=== PATIENT | male | born 1950 | race Caucasian/White ===

== ENCOUNTER 2019-11-24 09:50 | Outpatient (CLI) | payer MEDICARE, SELFPAY ==
--- NOTE | ~2019-11-24 | CT_ITS ---
EXAMINATION: CT lung screening DATE: 11/24/2019 10:22 INDICATION: Personal history of tobacco dependence. TECHNIQUE: Computed tomography (CT) of the chest was performed without intravenous contrast. The dose -length product was 190.87 mGy-cm. Automated exposure control and iterative reconstruction technique were employed. COMPARISON: CT dated 10/20/2018 FINDINGS: Heart size is normal. No significant pleural or pericardial effusion. There is atherosclero sis of the aorta and coronary arteries. There are calcified granulomas of the spleen. No significant pleural or pericardial effusion. There is a 5.9 cm right renal cyst. Mild emphysema. There is depende nt atelectasis. There are coronary arterial stents. Mild thoracic spondylosis. There are small inters titial densities in the right upper lobe which appear chronic. There is a 2 mm left upper lobe nodule , coronal image 44. Calcified right upper lobe nodule consistent with chronic granulomatous disease. IMPRESSION: 1. Lung-RADS category 2: Benign appearance or behavior. Continue annual screening with noncontrast lo w-dose chest CT in 12 months. Reviewed, dictated and finalized at location A. IMPRESSION: 1. Lung-RADS category 2: Benign appearance or behavior. Continue annual screeni ng with noncontrast low-dose chest CT in 12 months.
== END 2019-11-24 09:51 | disposition home or self-care (01) ==
PROVIDERS: PCP Family Medicine; Visit Provider Internal Medicine Critical Care Medicine
DX: Z12.2 Encounter for screening for malignant neoplasm of respiratory organs (principal); Z87.891 Personal history of nicotine dependence
CPT/HCPCS: G0297

== ENCOUNTER 2020-11-08 10:21 | Outpatient (CLI) | payer MEDICARE, SELFPAY ==
--- NOTE | ~2020-11-08 | CT_ITS ---
EXAMINATION: CT lung screening DATE: 11/08/2020 10:41 INDICATION: Personal history of nicotine dependence, prior smoker with 40 pack year history TECHNIQUE: Computed tomography (CT) of the chest was performed without intravenous contrast. The dose -length product (DLP) was 202.17 mGy-cm. Automated exposure control and iterative reconstruction tech thinkingphones were employed. COMPARISON: 11/24/2019 FINDINGS: There is mild emphysema. No suspicious pulmonary nodules are identified. The lungs are free of focal airspace opacities. There is mild dependent atelectasis. No pleural effusion or thorax iden tified. No pathologically enlarged thoracic lymph nodes are identified. The heart size is normal. The re is calcified coronary artery atherosclerosis. Subendocardial fat deposition in the heart is consis tent with prior myocardial infarction. There is moderate thoracic spondylosis. There is a partially i franck 5.7 cm cyst of the right kidney. Punctate calcifications in an otherwise normal spleen likely r epresent healed granulomatous disease. IMPRESSION: 1. Lung-RADS category 1: Negative. Continue annual screening with noncontrast low-dose chest CT in 12 months. Reviewed, dictated and finalized at location B. IMPRESSION: 1. Lung-RADS category 1: Negative. Continue annual screening with noncontrast l ow-dose chest CT in 12 months.
== END 2020-11-08 10:22 | disposition home or self-care (01) ==
PROVIDERS: PCP Family Medicine; Visit Provider Nurse Practitioner Family
DX: Z12.2 Encounter for screening for malignant neoplasm of respiratory organs (principal); Z87.891 Personal history of nicotine dependence
CPT/HCPCS: 71271

== ENCOUNTER 2021-11-12 09:13 | Outpatient (CLI) | payer MEDICARE, SELFPAY ==
--- NOTE | ~2021-11-12 | CT_ITS ---
EXAMINATION:CT lung screening DATE: 11/12/2021 09:36 INDICATION: Personal history of nicotine dependence. Smoker who quit 12 years ago with 40 pack year h istory. TECHNIQUE: Computed tomography (CT) of the chest was performed without intravenous contrast. Automate d exposure control and iterative reconstruction technique were employed. The dose-length product (DLP ) was 257.44 mGy-cm. COMPARISON: Chest CT 11/08/2020 FINDINGS: There is mild emphysema. There is chronic mild peripheral scarring in right lower lobe. The re is peripheral septal thickening in the inferior lungs. Calcified right lung nodules and calcified right hilar lymph nodes are consistent with old granulomatous disease. No bronchiectasis or honeycomb ing. No pleural effusion. There is left atrial enlargement of the heart. There are coronary artery ca lcifications. No pericardial effusion. There is a small sliding hiatal hernia. Calcifications in the spleen are consistent with old granulomatous disease. There is diffuse hepatic steatosis. There is a 6.4 cm cyst in right kidney. There is mild chronic anterior wedging of multiple vertebral bodies. IMPRESSION: 1. Lung-RADS category 2: Benign appearance or behavior. Continue annual screening with noncontrast lo w-dose chest CT in 12 months. Reviewed, dictated and finalized at location B. IMPRESSION: 1. Lung-RADS category 2: Benign appearance or behavior. Continue annual screeni ng with noncontrast low-dose chest CT in 12 months.
== END 2021-11-12 09:14 | disposition home or self-care (01) ==
LOC: ANHIMG 09:18
PROVIDERS: PCP Family Medicine; Visit Provider Physician Assistant
DX: Z12.2 Encounter for screening for malignant neoplasm of respiratory organs (principal); Z87.891 Personal history of nicotine dependence
CPT/HCPCS: 71271

== ENCOUNTER 2022-11-13 12:59 | Outpatient (CLI) | payer MEDICARE, SELFPAY ==
--- NOTE | ~2022-11-13 | CT_ITS ---
CT Scan of the Chest without Contrast: Clinical Indication: Lung cancer screening, personal Technique: Contiguous sections were acquired throughout the chest without intravenous contrast. Dose reduction technique was used on this scan by utilizing automated exposure control and iterative recon struction technique. The dose-length product (DLP) was 279.99 mGy-cm. Smoking history COMPARISON: 11/12/2021, 11/08/2020 Findings: There is no evidence of any significant mediastinal, hilar or axillary lymphadenopathy. Coronary corky ry calcifications are present. There is no evidence of pleural or pericardial effusion. No significant pulmonary nodule evident. Minimal subpleural reticulation noted. Images through the upper abdomen reveal no abnormalities. Impression: Lung RADS 2: Benign appearance. 12 month follow-up screening CT advised. Reviewed, dictated and finalized at [facility]. Impression: Lung RADS 2: Benign appearance. 12 month follow-up screening CT advised.
== END 2022-11-13 13:00 | disposition home or self-care (01) ==
PROVIDERS: PCP Family Medicine; Visit Provider Physician Assistant
DX: Z12.2 Encounter for screening for malignant neoplasm of respiratory organs (principal); Z87.891 Personal history of nicotine dependence
CPT/HCPCS: 71271

== ENCOUNTER 2023-05-20 01:19 | Day surgery (SDC) | payer MEDICARE, SELFPAY ==
[2023-05-16 09:24] VITALS: BMI 34.1
[2023-05-20 06:19] VITALS: BP 112/75; PULSE 70; RESP 18; TEMP 36.6; O2SAT 97
[2023-05-20] MEDS: LACTATED RINGERS 1,000 ML 150 ML IV CONT (06:30)
--- NOTE | 2023-05-20 07:18 | PM.HPGS ---
History of Present Illness History of Present Illness Consent: Risks, benefits, and alternatives have been discussed and questions answered. Patient agrees to proceed with procedure. Chief complaint: neoplasm screening, Narrative: Hamzah Smiley is a 72 year old male Presents for screening colonoscopy. Patient's current weight appetite and bowel movements are normal. Patient denies abdominal pain. He has had no bleeding. Family history noncontributory. Previous colonoscopy 2012 was unremarkable. Patient is on Eliquis because of atherosclerotic heart disease. History of heart stents. This is held in anticipation of colonoscopy. Review of Systems Review of Systems: Review of systems noncontributory. [facility] Past Medical History Medical History (Updated 04/30/23 @ 13:05 by Domenico Rankin MD) Acute bronchitis At low risk for fall Atherosclerosis of coronary artery of [place] heart without angina pectoris 2 stents placed around 2012. Nuclear stress test with no ischemia and ejection fraction 66% on 04/29/2023. Bilateral cataracts BPH without obstruction/lower urinary tract symptoms Colon cancer screening colonoscopy -2012 with recheck in 10 years Contracture of joint of finger of right hand COVID-19 02/23/22 positive home test Encounter for prostate cancer screening PSA 1.37 on 02/07/2023. Encounter for screening for malignant neoplasm of lung in former smoker who quit in past 15 years with 30 pack year history or greater CT lung negative on 11/08/2020. CT 11/13/2022 Was negative with recheck in 1 year. Hyperkalemia (07/11/22) potassium slightly elevated at 5.4 on 07/11/2022. Potassium normal at 4.3 on 07/26/2022. repeat labs 07/26/2022 with potassium normal at 4.3. Male erectile dysfunction, unspecified Obesity (BMI 30.0-34.9) Personal history of colonic polyps Family History Family History Mother Patient's mother is , Onset Age: 85 Acute myocardial infarction Sibling Patient's brother is , Onset Age: 61 Social History Social History (Updated 02/11/23 @ 10:45 by Darlin Abernathy MA) Social History: Quit 2010, 40 pack years Smoking packs per day: 1.5 Smoking cigarettes per day: 30.0 Years smoked: 40 Smoking pack-years: 60.00 Smoking status: Former smoker Tobacco type: cigarettes Second hand tobacco smoke exposure: Yes Smoking end date: 07/28/09 Alcohol intake: current Drinks per week: 8 Alcohol use details: BEERS Substance use: never Substance use type: does not use Lack of Transportation: No Lack of Food: Never True Current Housing: I Have Housing Concerned About Future Housing: No Difficulty Paying Gas/Electric Bills: No Difficulty Paying for Meds: No Currently Unemployed: No Education: High School Diploma/GED Difficulty w/ Childcare or Family Care: No Living arrangements: with family Spiritual care concerns: No Meds Home Medications and Allergies Home Medications Medication Instructions Recorded Confirmed Type apixaban 5 mg tablet (Eliquis) 5 mg PO BID 06/15/19 05/16/23 History aspirin 81 mg tablet,delayed 81 mg PO DAILY 06/15/19 05/16/23 History release (Adult Low Dose Aspirin) lisinopril 5 mg tablet 5 mg PO DAILY 06/15/19 05/16/23 History pantoprazole 40 mg tablet,delayed 40 mg PO QAM 06/15/19 05/16/23 History release spironolactone 25 mg tablet 25 mg PO DAILY 06/15/19 05/16/23 History carvedilol 6.25 mg tablet 6.25 mg PO Q12H 02/14/21 05/16/23 History icosapent ethyl 1 gram capsule 2 g PO BID 02/14/21 05/16/23 History (Vascepa) rosuvastatin 40 mg tablet 40 mg PO DAILY 05/16/23 05/16/23 History Allergies Allergy/AdvReac Type Severity Reaction Status Date / Time No Known Allergies Allergy Unknown Verified 05/20/23 06:16 Vital Signs Vital Signs - 24 hr 05/20/23 06:19 Temperature 97.8 F Pulse Rate 70 Respiratory R
--- NOTE | 2023-05-20 07:20 | WPDANESEPPF ---
Anes - Initial Pre Proc Eval Procedure: Operation Date: 05/20/23 07:30 Proposed Procedures p Screening Colonoscopy - Jason Francisco MD Date/Time: 05/20/23 07:20 Surgeon: Jason Francisco MD Pre Op Diagnosis: neoplasm screening, Patient Data Age: 72 Gender: M Height: 1.78 m Weight: 104.5 kg Last Vital Signs Temp 97.8 F 05/20/23 06:19 Pulse 70 05/20/23 06:19 Resp 18 05/20/23 06:19 BP 112/75 05/20/23 06:19 Pulse Ox 97 05/20/23 06:19 O2 Del Method Room Air 05/20/23 06:19 Allergies Allergy/AdvReac Type Severity Reaction Status Date / Time No Known Allergies Allergy Unknown Verified 05/20/23 06:16 Home Medications Medication Instructions Recorded Confirmed Type apixaban 5 mg tablet (Eliquis) 5 mg PO BID 06/15/19 05/16/23 History aspirin 81 mg tablet,delayed 81 mg PO DAILY 06/15/19 05/16/23 History release (Adult Low Dose Aspirin) lisinopril 5 mg tablet 5 mg PO DAILY 06/15/19 05/16/23 History pantoprazole 40 mg tablet,delayed 40 mg PO QAM 06/15/19 05/16/23 History release spironolactone 25 mg tablet 25 mg PO DAILY 06/15/19 05/16/23 History carvedilol 6.25 mg tablet 6.25 mg PO Q12H 02/14/21 05/16/23 History icosapent ethyl 1 gram capsule 2 g PO BID 02/14/21 05/16/23 History (Vascepa) rosuvastatin 40 mg tablet 40 mg PO DAILY 05/16/23 05/16/23 History Patient hx anesthesia problems: none Family hx anesthesia problems: none Results Review: All pre-operative results and documents have been reviewed as part of the pre-operative evaluation. [facility] Past Medical History Medical History (Updated 04/30/23 @ 13:05 by Domenico Rankin MD) Acute bronchitis At low risk for fall Atherosclerosis of coronary artery of [place] heart without angina pectoris 2 stents placed around 2012. Nuclear stress test with no ischemia and ejection fraction 66% on 04/29/2023. Bilateral cataracts BPH without obstruction/lower urinary tract symptoms Colon cancer screening colonoscopy -2013 with recheck in 10 years Contracture of joint of finger of right hand COVID-19 02/23/22 positive home test Encounter for prostate cancer screening PSA 1.37 on 02/07/2023. Encounter for screening for malignant neoplasm of lung in former smoker who quit in past 15 years with 30 pack year history or greater CT lung negative on 11/08/2020. CT 11/13/2022 Was negative with recheck in 1 year. Hyperkalemia (07/11/22) potassium slightly elevated at 5.4 on 07/11/2022. Potassium normal at 4.3 on 07/26/2022. repeat labs 07/26/2022 with potassium normal at 4.3. Male erectile dysfunction, unspecified Obesity (BMI 30.0-34.9) Personal history of colonic polyps Family History Family History Mother Patient's mother is , Onset Age: 85 Acute myocardial infarction Sibling Patient's brother is , Onset Age: 61 Social History Social History (Updated 02/11/23 @ 10:45 by Darlin Abernathy MA) Social History: Quit 2010, 40 pack years Smoking packs per day: 1.5 Smoking cigarettes per day: 30.0 Years smoked: 40 Smoking pack-years: 60.00 Smoking status: Former smoker Tobacco type: cigarettes Second hand tobacco smoke exposure: Yes Smoking end date: 07/28/09 Alcohol intake: current Drinks per week: 8 Alcohol use details: BEERS Substance use: never Substance use type: does not use Lack of Transportation: No Lack of Food: Never True Current Housing: I Have Housing Concerned About Future Housing: No Difficulty Paying Gas/Electric Bills: No Difficulty Paying for Meds: No Currently Unemployed: No Education: High School Diploma/GED Difficulty w/ Childcare or Family Care: No Living arrangements: with family Spiritual care concerns: No Anes - Eval Final PreProcedure Day of Procedure 05/20/23 07:20 Patient weight: obese Heart: regular rate and rhythm Lungs: clear to auscultation
[2023-05-20 07:44] VITALS: BP 97/73; PULSE 72; RESP 23; O2SAT 98
[2023-05-20 07:54] VITALS: BP 116/73; PULSE 81; RESP 16; O2SAT 95
[2023-05-20 08:04] VITALS: BP 120/86; PULSE 77; RESP 20; O2SAT 95
== END 2023-05-20 08:09 | disposition home or self-care (01) ==
PROVIDERS: PCP Family Medicine; Visit Provider Internal Medicine Gastroenterology
PROC: 0DJD8ZZ Inspection of Lower Intestinal Tract, Via Natural or Artificial Opening Endoscopic (ICD-10-PCS; CPT 45378; principal; 2023-05-20 07:30)
DX: Z12.11 Encounter for screening for malignant neoplasm of colon (principal); D12.2 Benign neoplasm of ascending colon; K64.8 Other hemorrhoids; K57.30 Diverticulosis of large intestine without perforation or abscess without bleeding; I25.10 Atherosclerotic heart disease of native coronary artery without angina pectoris; N40.0 Benign prostatic hyperplasia without lower urinary tract symptoms; E66.9 Obesity, unspecified; Z68.33 Body mass index [BMI] 33.0-33.9, adult; Z79.01 Long term (current) use of anticoagulants; Z79.82 Long term (current) use of aspirin; Z87.891 Personal history of nicotine dependence; Z95.5 Presence of coronary angioplasty implant and graft
CPT/HCPCS: 45385; 88305; J2704; J7120

== ENCOUNTER 2023-10-30 13:48 | Outpatient (CLI) | payer MEDICARE, SELFPAY ==
--- NOTE | ~2023-10-30 | XR_ITS ---
XR chest 2V DATE: 10/30/2023 14:00 INDICATION: Persistent cough for 2 weeks TECHNIQUE: PA and lateral views COMPARISON: 11/14/2023 PA and lateral views FINDINGS: Borderline heart size. There is aortic calcification. No hilar or mediastinal enlargement . No pulmonary infiltrate or consolidation, pulmonary vascular congestion or pleural effusion or pne umothorax. Moderate anterior wedging of T12, likely chronic. IMPRESSION: Borderline heart size. No active pulmonary disease Reviewed, dictated and finalized at location B.
== END 2023-10-30 13:49 | disposition home or self-care (01) ==
PROVIDERS: PCP Family Medicine; Visit Provider Family Medicine
DX: J20.9 Acute bronchitis, unspecified (principal)
CPT/HCPCS: 71046

== ENCOUNTER 2023-11-17 09:38 | Outpatient (CLI) | payer MEDICARE, SELFPAY ==
--- NOTE | ~2023-11-17 | CT_ITS ---
EXAMINATION: CT lung screening DATE: 11/17/2023 09:59 INDICATION: Personal history of nicotine TECHNIQUE: Computed tomography (CT) of the chest was performed without intravenous contrast. The dose -length product was 212.73 mGy-cm. Automated exposure control and iterative reconstruction technique were employed. COMPARISON: CT report dated 11/13/2022 FINDINGS: Heart size normal. No significant pleural or pericardial effusion. Heart size normal. There is atherosclerosis. There are calcified granulomas of the spleen. Fatty infiltration of the liver. T here is atherosclerosis of the aorta and coronary arteries. No thoracic lymphadenopathy. No endobronc hial lesions. There is dependent atelectasis. Mild emphysema. There is dependent atelectasis. There a re a few scattered calcified granulomas. There are a few small 1-2 mm upper lobe nodules not clearly calcified. Moderate thoracic spondylosis. There is a wedge compression deformity of T12, likely chron ic. IMPRESSION: 1. Lung-RADS category 2: Benign appearance or behavior. Continue annual screening with noncontrast lo w-dose chest CT in 12 months. Reviewed, dictated and finalized at location B. IMPRESSION: 1. Lung-RADS category 2: Benign appearance or behavior. Continue annual screeni ng with noncontrast low-dose chest CT in 12 months.
== END 2023-11-17 09:39 | disposition home or self-care (01) ==
LOC: ANHIMG 09:40
PROVIDERS: PCP Family Medicine; Visit Provider Physician Assistant
DX: Z12.2 Encounter for screening for malignant neoplasm of respiratory organs (principal); Z87.891 Personal history of nicotine dependence
CPT/HCPCS: 71271

== ENCOUNTER 2023-11-18 01:10 | Emergency (ER) | payer MEDICARE, SELFPAY ==
[2023-11-18 01:11] VITALS: BP 135/83; PULSE 90; RESP 16; TEMP 36.4; O2SAT 96
[2023-11-18 01:32] LABS: Basophils Percent Auto 0.1 % (0.2-1.2); Eosinophils Percent Auto 0.1 % (0-4.4); Hematocrit 48.3 % (42.0-52.0); Hemoglobin 16.1 g/dL (14.0-18.0); Immature Granulocyte Absolute 0.02 K/mm3 (0.00-0.031); Immature Granulocyte Percent A 0.3 % (0-0.5); Lymphocytes Absolute Auto 1.68 K/mm3 (0.9-3.2); Lymphocytes Percent Auto 21.9 % (18.3-44.2); Mean Corpuscular HGB Conc 33.3 g/dl (32-36); Mean Corpuscular Hemoglobin 29.7 pg (26-34); Mean Platelet Volume 9.6 fl (7.4-10.4); Monocytes Absolute Auto 0.9 K/mm3 (0.1-0.6); Monocytes Percent Auto 12.2 % (2.6-8.5); Neutrophils Percent Auto 65.4 % (45.5-73.1); Platelet Count Result 202 k/mm3 (150-375); Red Blood Count 5.43 M/mm3 (4.6-6.20); Red Cell Distribution Width 15.4 % (11.5-14.5); White Blood Count 7.7 K/mm3 (4.5-10.0)
[2023-11-18 01:42] LABS: Alanine Aminotransferase 27 U/L (6-50); Albumin Level 4.3 g/dL (3.5-5.1); Alkaline Phosphatase 79 U/L (38-126); Anion Gap 5 mmol/L (4-12); Aspartate Amino Transferase 38 U/L (17-59); Bilirubin,Total 0.9 mg/dL (0.2-1.3); Blood Urea Nitrogen 14 mg/dL (9-20); Calcium 9.1 mg/dL (8.4-10.2); Carbon Dioxide 26 mmol/L (22-30); Chloride 104 mmol/L (98-107); Estimated CRCL calculation 86 ml/min; Estimated Glomerular Filt Rate > 60; Glucose 115 mg/dL (65-110); Lipase 73 U/L (23-300); Potassium 3.5 mmol/L (3.4-5.0); Sodium 135 mmol/L (137-145)
[2023-11-18 02:07] LABS: Influenza A QL RT-PCR Negative (Negative); Influenza B QL RT-PCR Negative (Negative); RSV RNA, RT-PCR Negative (Negative); SARS-CoV-2 RNA PCR Negative (Negative)
[2023-11-18 02:36] LABS: Appearance Urine Cloudy (Clear); Bilirubin Urine Negative (Negative); Blood Urine 1+ (Negative); Color Urine Yellow (Yellow); Glucose Urine UA Negative (Negative); Ketones Urine Negative (Negative); Leukocyte Esterase Ur 3+ LEU/UL (Negative); Nitrate Urine Negative (Negative); Non Pathogenic Casts 0-2; Protein Urine Negative (Negative); RBC Urine 0-2 /hpf (0-2); Specific Grav Ur 1.011 (1.001-1.035); Squamous Epithelial Cell Urine None Seen /hpf (Few); WBC Urine >100 /hpf (0-3); pH Urine 5.5 (5.0-9.0)
[2023-11-18 02:47] LABS: Bacteria Urine 2+ /hpf
[2023-11-18 02:48] LABS: Add Urine Microscopic? YES
[2023-11-18] MEDS: SODIUM CHLORIDE 0.9% IV 1,000 ML 999 ML IV CONT (03:17)
[2023-11-18 03:24] VITALS: BP 120/86; PULSE 76; RESP 15; O2SAT 97
--- NOTE | 2023-11-18 03:24 | ED.GENADULT ---
HPI - General Adult General Chief complaint: Nausea/Vomiting/Diarrhea Stated complaint: vomiting and diarrhea Time Seen by Provider: 11/18/23 02:47 History of Present Illness HPI narrative: Patient 72-year-old woman who presents emergency department with chief complaint of diarrhea vomiting and chills and episodes of sweating. Patient reports that he had symptoms over the weekend and reports that now he started to slough stool and is having no more vomiting. The patient has had an episode of chills and sweats patient states he has had no chest pain denies shortness of breath. Related Data Home Medications Medication Instructions Recorded Confirmed apixaban 5 mg tablet (Eliquis) 5 mg PO BID 06/15/19 08/19/23 aspirin 81 mg tablet,delayed 81 mg PO DAILY 06/15/19 08/19/23 release (Adult Low Dose Aspirin) lisinopril 5 mg tablet 5 mg PO DAILY 06/15/19 08/19/23 pantoprazole 40 mg tablet,delayed 40 mg PO QAM 06/15/19 08/19/23 release spironolactone 25 mg tablet 25 mg PO DAILY 06/15/19 08/19/23 carvedilol 6.25 mg tablet 6.25 mg PO Q12H 02/14/21 08/19/23 icosapent ethyl 1 gram capsule 2 g PO BID 02/14/21 08/19/23 (Vascepa) rosuvastatin 40 mg tablet 40 mg PO DAILY 05/16/23 08/19/23 Allergies Allergy/AdvReac Type Severity Reaction Status Date / Time No Known Allergies Allergy Unknown Verified 05/20/23 06:16 Review of Systems Review of Systems: A 10 system review of systems was completed on the patient and is negative except for what is stated in the HPI. Nursing and ancillary documentation was reviewed. [facility] Past Medical History Medical History Acute bronchitis (~09/2023) Chest x-ray with no active lung disease 10/30/2023. Acute non-recurrent maxillary sinusitis At low risk for fall Atherosclerosis of coronary artery of [place] heart without angina pectoris 2 stents placed around 2013 LAD, RCA. Nuclear stress test with no ischemia and ejection fraction 66% on 04/29/2023. Bilateral cataracts BMI 33.0-33.9,adult BPH without obstruction/lower urinary tract symptoms Colon cancer screening colonoscopy -2013 with recheck in 10 years Contracture of joint of finger of right hand COVID-19 02/23/22 positive home test. Tested positive 07/09/2023. Encounter for prostate cancer screening PSA 1.37 on 02/07/2023. Encounter for screening for malignant neoplasm of lung in former smoker who quit in past 15 years with 30 pack year history or greater CT lung negative on 11/08/2020. CT 11/13/2022 Was negative with recheck in [address] lungs 11/17/2023 Was negative. Essential hypertension Hyperkalemia (07/11/22) potassium slightly elevated at 5.4 on 07/11/2022. Potassium normal at 4.3 on 07/26/2022. repeat labs 07/26/2022 with potassium normal at 4.3. Male erectile dysfunction, unspecified Obesity (BMI 30.0-34.9) Personal history of colonic polyps Normal colonoscopy 2012.Sessile polyp , tubular adenoma, ascending colon 05/20/2023 with recheck in 5 years. UTI (urinary tract infection) Family History Family History Mother Patient's mother is , Onset Age: 85 Acute myocardial infarction Sibling Patient's brother is , Onset Age: 61 Social History Social History Social History: Quit 2010, 40 pack years Smoking packs per day: 1.5 Smoking cigarettes per day: 30.0 Years smoked: 40 Smoking pack-years: 60.00 Smoking status: Former smoker Tobacco type: cigarettes Second hand tobacco smoke exposure: Yes Smoking end date: 07/28/09 Alcohol intake: current Drinks per week: 8 Alcohol use details: BEERS Substance use: never Substance use type: does not use Lack of Transportation: No Lack of Food: Never True Current Housing: I Have Housing Concerned About Future Housing: No Difficult
[2023-11-18 04:29] VITALS: BP 128/91; PULSE 68; RESP 16; O2SAT 97
== END 2023-11-18 04:36 | disposition home or self-care (01) ==
PROVIDERS: Emergency Provider Emergency Medicine; PCP Family Medicine
DX: N39.0 Urinary tract infection, site not specified (principal); K52.9 Noninfective gastroenteritis and colitis, unspecified; Z20.822 Contact with and (suspected) exposure to COVID-19; I25.10 Atherosclerotic heart disease of native coronary artery without angina pectoris; I10 Essential (primary) hypertension; E66.9 Obesity, unspecified; N40.0 Benign prostatic hyperplasia without lower urinary tract symptoms; Z68.32 Body mass index [BMI] 32.0-32.9, adult; Z95.5 Presence of coronary angioplasty implant and graft; Z86.16 Personal history of COVID-19; Z87.440 Personal history of urinary (tract) infections; Z86.010 Personal history of colon polyps; Z79.01 Long term (current) use of anticoagulants; Z79.82 Long term (current) use of aspirin; Z87.891 Personal history of nicotine dependence
CPT/HCPCS: 36415; 80053; 81001; 83690; 85025; 87077; 87086; 87088; 87181; 87637; 96361; 96365; 99284; J0696; J7030

== ENCOUNTER 2024-09-22 10:11 | Outpatient (CLI) | payer MEDICARE, SELFPAY ==
--- NOTE | 2024-09-22 10:30 | ECG_ITS ---
Test Date: 2024-09-22 10:43:10 Measurements Intervals [place] Rate: 69 P: 0 [place]: 0 QRS: 31 QRSD: 93 T: 41 QT: 384 QTc: 412 Interpretive Statements ATRIAL FIBRILLATION BASELINE ARTIFACT- I, III, AVR, AVL, AVF, V1-V6 ABNORMAL ECG No previous ECG available for comparison Electronically Signed On 09-22-2024 10:47:37 PIN GAME MACHINE INSPECTOR by Franklin Oseguera D.O.
--- OUTSIDE RECORDS SUMMARY | 2024-09-22 11:46 | XMS_ITS | Referral Summary ---
Author Organization [facility] [place] [address] [facility] [address] Address [address] [place] [address] Care Team Providers Care Header Boss Name Role Phone Domenico Rankin MD Primary Care Provider [phone] Encounters Date Type Department Care Team Description 09/08/2024 Telephone [facility] Medical Group Cardiology [address] [facility] [address] [place] [address] Terrell Brizuela MD 07/07/2024 9:15 AM BUCKLE GLUER Ancillary Procedure [facility] Medical [facility] Cardiology [address] [place] [address] Coronary artery disease involving [place] coronary artery of [place] heart with other form of angina pectoris (HCC) from Last 3 Months Allergies No known active allergies Medications aspirin 81 mg enteric coated tablet Take 1 tablet (81 mg total) by mouth daily 30 tablet 12 04/12/2019 Active icosapent ethyL (VASCEPA) 1 gram capsule TAKE 2 CAPSULES BY MOUTH TWICE DAILY 360 capsule 3 12/08/2022 Active icosapent ethyL (Vascepa) 1 gram capsule Take 2 capsules (2 g total) by mouth 2 (two) times a day 360 capsule 3 09/10/2023 Active carvediloL (COREG) 6.25 mg tablet TAKE 1 TABLET BY MOUTH TWICE DAILY WITH MEALS 180 tablet 3 06/08/2024 Active rosuvastatin (CRESTOR) 40 mg tablet TAKE 1 TABLET BY MOUTH AT NIGHT 90 tablet 3 06/08/[address] (PROTONIX) 40 mg EC tablet TAKE 1 TABLET BY MOUTH DAILY 90 tablet 3 07/12/2024 Active spironolactone (ALDACTONE) 25 mg tablet TAKE 1 TABLET BY MOUTH DAILY 90 tablet 3 07/12/2024 Active lisinopriL (PRINIVIL,ZESTR [place]) 5 mg tablet TAKE 1 TABLET BY MOUTH DAILY 90 tablet 3 07/12/2024 Active Eliquis 5 mg tablet TAKE 1 TABLET BY MOUTH TWICE DAILY 180 tablet 3 07/12/2024 Active Active Problems Problem Noted Date Diagnosed Date Atrial fibrillation (CMS/HCC) 05/17/2015 Overview (11/01/2016): Atrial fibrillation status post cardioversion Social History Tobacco Use Types Packs/Day Years Used Date Smoking Tobacco: Former Cigarettes Q uit: 07/28/2009 Smokeless Tobacco: Never Tobacco Cessation:Counseling Given: Not Answered Alcohol Use Standard Drinks/Week Comments Yes 0 (1 standard drink = 0.6 oz pur e alcohol) Sex and Gender Information Value Date Recorded Sex Assigned at Not on file Legal Sex Male 10:57 AM BUCKLE GLUER Gender Identity Not on file Sexual Orientation Not on file Last Filed Vital Signs Vital Sign Reading Time Taken Comments Blood Pressure 109/73 07/07/2024 9:51 AM BUCKLE GLUER Pulse 83 05/07/2024 9:47 AM CDT Temperature 34.6 C (94.2 F) 10/23/2020 1:14 PM CDT Respiratory Rate 15 06/03/2022 11:07 AM BUCKLE GLUER Oxygen Saturation 94% 05/07/2024 9:47 AM CDT Inhaled Oxygen Concentration - - Weight 102.1 kg (225 lb) 05/07/2024 9:47 AM CDT Height 177.8 cm (5' 10 ) 05/07/2024 9:47 AM CDT Body Mass Index 32.28 05/07/2024 9:47 AM CDT Plan of Treatment Not on file Procedures Procedure Name Priority Date/Time Associated Diagnosis Comments TRANSTHORACIC ECHO (TTE) COMPLETE W DOPPLER/CF WO CONTRAST Routine 07/07/2024 9:51 AM BUCKLE GLUER Coronary artery disease involving [place] coronary artery of [place] heart with other form of angina pectoris (HCC) from Last 3 Months Results * TRANSTHORACIC ECHO (TTE) COMPLETE W DOPPLER/CF WO CONTRAST (07/07/2024 9:51 AM BUCKLE GLUER) Anatomical Region Laterality Modality Ultrasound 07/07/2024 9:52 AM BUCKLE GLUER Narrative 07/07/2024 11:58 AM BUCKLE GLUER [facility] Medical Group Cardiology [address], [place] [address] [address], [place] [address] P:[phone] P:[phone] Echocardiographic Report Patient Name: HAMZAH SMILEY R : 1950 Study Date: 07/07/2024 9:52:35 AM Gender: M Tech: CLARISSE [facility] Provider: TERRELL BRIZUELA Height(Cm): 178 BSA: 2.25 Weight(Kg): 102.1 Heart Rate: 76 BP: 109 / 73 Quality: Good Order Provider: TERRELL BRIZUELA PROCEDURES: Echocardiographic Report: Transthoracic echocardiogram with complete 2D, M-Mode, and color Doppler examination. With Strain Analysis. INDICATIONS: I25.118 Atherosclerotic heart disease of [place] coronary artery with other forms of angina pectoris. MEASUREMENTS: 2D/MM Value Range Doppler Value Range Estimated EF 55-60 % BRITTANY Vmax 3.07 cm2 [ 2.00 - 4.00 ] LVIDd 2D 4.76 cm [ 4.20 - 5.80 ] AV Mean PG 2 mmHg LVIDs 2D 3.75 cm [ 2.50 - 4.00 ] AV Peak Milton 0.92 m/s [ 1.00 - 1.70 ] LVPWd 2D 1.26 cm [ 0.60 - 1.00 ] AV Peak PG 3 mmHg IVSd 2D 1.31 cm [ 0.60 - 1.00 ] AV VTI 15.56 cm LA Volume Index 38 cc/m2 [ 16 - 34 ] LVOT Diam 2.33 cm [ 1.70 - 2.10 ] LVOT Peak [place] 0.65 m/s [ 0.70 - 1.10 ] LVOT VTI 10.55 cm MV E Peak [place] 0.67 m/s [ 0.60 - 1.30 ] MV A Peak [place] 0.53 m/s [ 1.00 - 1.20 ] MV Decel Time 187 msec [ 104 - 258 ] TR Peak Milton 2.21 m/s [ 1.00 - 2.80 ] TR Peak PG 20 mmHg Lateral E` 0.10 m/s [ 0.10 - 0.15 ] E` 0.09 m/s E/E` 7 2D/MM Value Range Doppler Value Range - FINDINGS: Interpretation Site: Exam was interpreted at [facility]. Left Ventricle: Normal left ventricular size. Moderate concentric left ventricular hypertrophy. Normal global left ventricular systolic function. Ejection Fraction is visually estimated to be 55-60 %. Global Longitudinal Strain is -13 %. Right Ventricle: Normal right ventricular size. Normal right ventricular systolic function. Left Atrium: There is mild enlargement of left atrium. Right Atrium: There is mild enlargement of right atrium. Atrial Septum: Normal atrial septum. Mitral Valve: Normal appearance of the mitral valve. Trivial regurgitation of the mitral valve. Aortic Valve: No evidence of hemodynamically significant aortic stenosis by Doppler. Aortic cusps appear mildly sclerotic. Trileaflet aortic valve. Tricuspid Valve: Normal appearance of the tricuspid valve. Estimated peak RVSP is 28 mmHg. Mild tricuspid regurgitation. Pulmonic Valve: Normal appearance of the pulmonic valve. Mild pulmonic regurgitation. Pericardium: Normal pericardium with no significant pericardial effusion. There is an anterior echo free space consistent with epicardial fat pad. Aorta: Sinus of Valsalva is mildly dilated. Sinus of Valsalva 4.0 cm. IVC: Normal size and normal respiratory collapse consistent with normal right atrial pressure (<5 mmHg). CONCLUSIONS: Normal left ventricular size. Moderate concentric left ventricular hypertrophy. Normal global left ventricular systolic function. Ejection Fraction about 55-60 %. Global Longitudinal Strain is abnormal at -13 %. Normal RV size and systolic function. Mild biatrial enlargement. Normal appearance of the mitral valve. Trivial regurgitation of the mitral valve. No evidence of hemodynamically significant aortic stenosis by Doppler. Aortic cusps appear mildly sclerotic. Trileaflet aortic valve. Estimated RVSP 28 mmHg. Mild tricuspid and pulmonic regurgitation. Electronically Signed By: Terrell Brizuela MD, [facility] 07/07/2024 11:57:05 AM BUCKLE GLUER Procedure Note Terrell Brizuela MD - 07/07/2024 [facility] Medical Group Cardiology [address] [facility] [address], [place] [address] [address] [facility] [address], [place] [address] P:[phone] P:[phone] Echocardiographic Report Patient Name: HAMZAH SMILEY R : 1950 Study Date: 07/07/2024 9:52:35 AM Gender: M Tech: CLARISSE Location: [facility] Provider: TERRELL BRIZUELA Height(Cm): 178 BSA: 2.25 Weight(Kg): 102.1 Heart Rate: 76 BP: 109 / 73 Quality: Good Order Provider: TERRELL BRIZUELA PROCEDURES: Echocardiographic Report: Transthoracic echocardiogram with complete 2D, M-Mode, and color Dopplerexamination. With Strain Analysis. INDICATIONS: I25.118 Atherosclerotic heart disease of [place] coronary artery with otherforms of angina pectoris. MEASUREMENTS: 2D/MM Value Range Doppler ValueRange Estimated EF 55-60 % BRITTANY Vmax 3.07cm2 [ 2.00 - 4.00 ] LVIDd 2D 4.76 cm [ 4.20 - 5.80 ] AV Mean PG 2mmHg LVIDs 2D 3.75 cm [ 2.50 - 4.00 ] AV Peak Milton 0.92m/s [ 1.00 - 1.70 ] LVPWd 2D 1.26 cm [ 0.60 - 1.00 ] AV Peak PG 3mmHg IVSd 2D 1.31 cm [ 0.60 - 1.00 ] AV VTI 15.56cm LA Volume Index 38 cc/m2 [ 16 - 34 ] LVOT Diam 2.33 cm[ 1.70 - 2.10 ] LVOT Peak [place] 0.65 m/s [ 0.70 - 1.10 ] LVOT VTI 10.55 cm MV E Peak [place] 0.67 m/s [ 0.60 - 1.30 ] MV A Peak [place] 0.53 m/s [ 1.00 - 1.20 ] MV Decel Time 187 msec [ 104 - 258 ] TR Peak Milton 2.21 m/s [ 1.00 - 2.80 ] TR Peak PG 20 mmHg Lateral E` 0.10 m/s [ 0.10 - 0.15 ] E` 0.09 m/s E/E` 7 2D/MM Value Range Doppler ValueRange - FINDINGS: Interpretation Site: Exam was interpreted at [facility]. Left Ventricle: Normal left ventricular size. Moderate concentric left ventricularhypertrophy. Normal global left ventricular systolic function. Ejection Fraction is visuallyestimated to be 55-60 %. Global Longitudinal Strain is -13 %. Right Ventricle: Normal right ventricular size. Normal right ventricular systolicfunction. Left Atrium: There is mild enlargement of left atrium. Right Atrium: There is mild enlargement of right atrium. Atrial Septum: Normal atrial septum. Mitral Valve: Normal appearance of the mitral valve. Trivial regurgitation of the mitralvalve. Aortic Valve: No evidence of hemodynamically significant aortic stenosis by Doppler.Aortic cusps appear mildly sclerotic. Trileaflet aortic valve. Tricuspid Valve: Normal appearance of the tricuspid valve. Estimated peak RVSP is 28 mmHg.Mild tricuspid regurgitation. Pulmonic Valve: Normal appearance of the pulmonic valve. Mild pulmonic regurgitation. Pericardium: Normal pericardium with no significant pericardial effusion. There is ananterior echo free space consistent with epicardial fat pad. Aorta: Sinus of Valsalva is mildly dilated. Sinus of Valsalva 4.0 cm. IVC: Normal size and normal respiratory collapse consistent with normal rightatrial pressure (<5 mmHg). CONCLUSIONS: Normal left ventricular size. Moderate concentric left ventricularhypertrophy. Normal global left ventricular systolic function. Ejection Fraction about 55-60%. Global Longitudinal Strain is abnormal at -13 %. Normal RV size and systolic function. Mild biatrial enlargement. Normal appearance of the mitral valve. Trivial regurgitation of the mitralvalve. No evidence of hemodynamically significant aortic stenosis by Doppler.Aortic cusps appear mildly sclerotic. Trileaflet aortic valve. Estimated RVSP 28 mmHg. Mild tricuspid and pulmonic regurgitation. Electronically Signed By: Terrell Brizuela MD, [facility] 07/07/2024 11:57:05 AM BUCKLE GLUER us Terrell Brizuela MD CV ECHO PROCEDURES Final Result from Last 3 Months Insurance MEDICARE [facility] MEDICARE [facility] Care Teams Header Boss Relationship Specialty Start Date End Date Domenico Rankin MD [address] [address] PCP - General Family Medicine 04/12/19
--- OUTSIDE RECORDS SUMMARY | 2024-09-22 11:46 | XMS_ITS | Clinical Summary ---
Author Organization [facility] [place] [address] Address [address] [place] [address] Care Team Providers Care Tube Bender Name Role Phone Domenico Rankin MD Primary Care Provider [phone] [phone] Allergies No known active allergies Medications aspirin [...] Problem Noted Date Diagnosed Date Atrial fibrillation ([facility]/HCC) 05/17/2015 Overview (11/01/2016): Atrial fibrillation status post cardioversion Encounters Date Type Department Care Team Description 09/08/2024 Telephone [facility] Medical Group Cardiology [address] [facility] [address] [place] [address] Terrell Brizuela MD 07/07/2024 9:15 AM DRAWING TENDER Ancillary Procedure [facility] Medical [facility] Cardiology [address] [place] [address] Coronary artery disease involving [place] coronary artery of [place] heart with other form of angina pectoris (HCC) from Last 3 Months Surgical History Surgery Date Site/Laterality Comments OTHER SURGICAL HISTORY Arrhythmias Afib s/p ILDEFONSO/DCCV: Medical History Medical History Date Comments Congestive heart failure (CMS/HCC) (HCC) Congestive Heart Failure Chronic coronary artery disease Coronary Artery Disease Hx Other Medical Arrhythmias Smita b s/p ILDEFONSO/DCCV Hx Other Medical Dyslipidemia Family History Medical History Relation Name Comments No Known Problems Father No Known Problems Mother Relation Name Status Comments Father Mother Social History Tobacco Use Types Packs/Day Years Used Date Smoking Tobacco: Former Cigarettes Q uit: 07/28/2009 Smokeless Tobacco: Never Tobacco Cessation:Counseling Given: Not Answered Alcohol Use Standard Drinks/Week Comments Yes 0 (1 standard drink = 0.6 oz pur e alcohol) Sex and Gender Information Value Date Recorded Sex Assigned at Not on file Legal Sex Male 10:57 AM DRAWING TENDER Gender Identity Not on file Sexual Orientation Not on file Obstetrics History Last Filed Vital Signs Vital Sign Reading Time Taken Comments Blood Pressure 109/73 07/07/2024 9:51 AM DRAWING TENDER Pulse 83 05/07/2024 9:47 AM CDT Temperature 34.6 C (94.2 F) 10/23/2020 1:14 PM CDT Respiratory Rate 15 06/03/2022 11:07 AM DRAWING TENDER Oxygen Saturation 94% 05/07/2024 9:47 AM CDT Inhaled Oxygen Concentration - - Weight 102.1 kg (225 lb) 05/07/2024 9:47 AM CDT Height 177.8 cm (5' 10 ) 05/07/2024 9:47 AM CDT Body Mass Index 32.28 05/07/2024 9:47 AM CDT Plan of Treatment Health Maintenance Due Date Last Done Comments Colon Cancer Screening-Colonoscopy 1950 Depression Screening 1950 Hepatitis C Screening 1950 DTaP/Tdap/Td Vaccine (1 - Tdap) 1960 Hepatitis B Screening 12/15/1967 Zoster Vaccine (1 of 2) 12/15/1999 Abdominal Aortic Aneurysm (A AA) Screen 2014 Well Visit 65+ 2014 Pneumococcal vaccine 65+ (2 of 2 - PPSV23) 08/16/2021 08/16/2020 Fall Risk Assessment 04/08/2023 04/08/2022, 04/09/2021, 04/10/2020, Additional history exists Influenza Vaccine (#1) 2024 08/16/2020 Procedures Procedure Name Priority Date/Time Associated Diagnosis Comments TRANSTHORACIC ECHO (TTE) COMPLETE W DOPPLER/CF WO CONTRAST Routine 07/07/2024 9:51 AM DRAWING TENDER Coronary artery disease involving [place] coronary artery of [place] heart with other form of angina pectoris (HCC) from Last 3 Months Results * TRANSTHORACIC ECHO (TTE) COMPLETE W DOPPLER/CF WO CONTRAST (07/07/2024 9:51 AM DRAWING TENDER) Anatomical Region Laterality Modality Ultrasound 07/07/2024 9:52 AM DRAWING TENDER Narrative 07/07/2024 11:58 AM DRAWING TENDER [facility] Medical Group Cardiology [address] [facility] [address] [address] [address] [facility] [address], [place] [address] P:[phone] P:[phone] Echocardiographic Report Patient Name: HAMZAH SMILEY R : 1950 Study Date: 07/07/2024 9:52:35 AM Gender: M Tech: CLARISSE Location: [place] Ref Provider: TERRELL BRIZUELA Height(Cm): 178 BSA: 2.25 Weight(Kg): 102.1 Heart Rate: 76 BP: 109 / 73 Quality: Good Order Provider: TERRELL BRIZUELA PROCEDURES: Echocardiographic Report: Transthoracic echocardiogram with complete 2D, M-Mode, and color Doppler examination. With Strain Analysis. INDICATIONS: I25.118 Atherosclerotic heart disease of [place] coronary artery with other forms of angina [...] FINDINGS: Interpretation Site: Exam was interpreted at [facility]. Left Ventricle: Normal left ventricular size. [...] regurgitation. Electronically Signed By: Terrell Brizuela MD, [facility] 07/07/2024 11:57:05 AM DRAWING TENDER Procedure Note Terrell Brizuela MD - 07/07/2024 [facility] Medical Group Cardiology [address] [facility] [address] [id number] [address] [facility] [address], [address], [place] [address] P:[phone] P:[phone] Echocardiographic Report Patient Name: HAMZAH SMILEY R : 1950 Study Date: 07/07/2024 9:52:35 AM Gender: M Tech: CLARISSE Location: [place] Ref Provider: TERRELL BRIZUELA Height(Cm): 178 BSA: 2.25 Weight(Kg): 102.1 Heart Rate: 76 BP: 109 / 73 Quality: Good Order Provider: TERRELL BRIZUELA PROCEDURES: Echocardiographic Report: Transthoracic echocardiogram with complete 2D, M-Mode, and color Dopplerexamination. With Strain Analysis. INDICATIONS: I25.118 Atherosclerotic heart disease of [place] coronary artery with otherforms of angina pectoris. [...] FINDINGS: Interpretation Site: Exam was interpreted at [facility]. Left Ventricle: Normal left ventricular size. [...] regurgitation. Electronically Signed By: Terrell Brizuela MD, [facility] 07/07/2024 11:57:05 AM DRAWING TENDER Terrell Brizuela MD CV ECHO PROCEDURES Final Result from Last 3 Months Insurance MEDICARE [facility] MEDICARE [facility] Care Teams Tube Bender Relationship Specialty Start Date End Date Domenico Rankin MD [address] [address] PCP - General Family Medicine 04/12/19
--- OUTSIDE RECORDS SUMMARY | 2024-09-22 11:46 | XMS_ITS | Clinical Summary ---
Author Organization [facility] Care Team Providers Care Magazine Feeder Name Role Phone Unavailable Primary Care Provider Unavailabl e Social History Tobacco Use Types Packs/Day Years Used Date Smoking Tobacco: Never Assessed Sex and Gender Information Value Date Recorded Sex Assigned at Not on file Legal Sex Male 8:03 AM CDT Gender Identity Not on file Sexual Orientation Not on file Plan of Treatment Health Maintenance Due Date Last Done Comments Hepatitis C Virus (HCV) Screening 1950 TdaP Immunization 1950 Colonoscopy 1994 Colorectal Cancer Screening 1994 Cologuard 12/15/1999 Immunochemical Fecal Occult Blood 12/15/1999 Zoster Immunization (1 of 2) 12/15/1999 Pneumococcal Immunization (5 0+ years) (2 of 2 - PPSV23) 08/16/2021 08/16/2020 Influenza Immunization (#1) 2024 08/16/2020 SARS-COV-2 Immunization (3 - season) 2024 10/20/2020, 09/22/2020 Respiratory Syncytial Virus (RSV) Immunization (Adult) (1 - 1-dose 75+ series) 2024 Hepatitis B Immunization Aged Out No longer eligible based on patient's age to complete this topic Meningococcal Immunization (ACWY) Aged Out No longer eligible b ased on patient's age to complete this topic Rotavirus Immunization Aged Out No lo nger eligible based on patient's age to complete this topic
[2024-09-22 11:53] LABS: Anion Gap 12 mmol/L (4-12); Blood Urea Nitrogen 15 mg/dL (9-20); Carbon Dioxide 22 mmol/L (22-30); Chloride 104 mmol/L (98-107); Estimated Glomerular Filt Rate > 60; Glucose 94 mg/dL (65-110); Potassium 4.3 mmol/L (3.4-5.0); Sodium 138 mmol/L (137-145)
== END 2024-09-22 10:12 | disposition home or self-care (01) ==
LOC: ANHSURGERY 10:17
PROVIDERS: Anesthesiology; PCP Family Medicine; Visit Provider Surgery
DX: Z01.818 Encounter for other preprocedural examination (principal); I25.10 Atherosclerotic heart disease of native coronary artery without angina pectoris; I48.91 Unspecified atrial fibrillation; I10 Essential (primary) hypertension; E78.2 Mixed hyperlipidemia; K42.9 Umbilical hernia without obstruction or gangrene; Z79.899 Other long term (current) drug therapy
CPT/HCPCS: 36415; 80048; 86850; 86900; 86901; 93005

== ENCOUNTER → 2024-09-28 11:08 | Outpatient (CLI) | payer MEDICARE, SELFPAY | PROVIDERS: PCP Family Medicine; Visit Provider Family Medicine | DX: J20.9 Acute bronchitis, unspecified (principal); R91.8 Other nonspecific abnormal finding of lung field | CPT/HCPCS: 71046 ==

== ENCOUNTER → 2024-10-07 15:59 | Outpatient (CLI) | payer MEDICARE, SELFPAY ==
--- NOTE | ~2024-10-07 | XR_ITS ---
XR chest 2V Ordering provider: Domenico Rankin MD History: 73 years Male with . J20.9 - Acute bronchitis, unspecified . Comparison: September 28, 2024 FINDINGS: MEDIASTINUM: The cardiac silhouette is slightly enlarged. LUNGS: No infiltrates, effusions or pneumothorax. Slightly prominent markings in the lower lobes. OTHER: No free air under the diaphragm. Degenerative changes of the spine. Kyphosis. IMPRESSION: Prominent markings in the lower lobes which may indicate atelectatic changes. Reviewed, dictated and finalized at location A.
== END ==
PROVIDERS: PCP Family Medicine; Visit Provider Family Medicine
DX: J20.9 Acute bronchitis, unspecified (principal)
CPT/HCPCS: 71046

== ENCOUNTER 2024-11-02 00:32 | Day surgery (SDC) | payer MEDICARE, SELFPAY ==
[2024-09-16 12:14] VITALS: BMI 33.4
--- NOTE | 2024-09-16 12:28 | PC.NURSE ---
Addendum entered by Naya Rubio RN 10/18/24 08:49: Called pt, he has recovered from his URI and is aware of date and time change. He is to be here on 11/02/24 at 0600am for 0730 surgery. Pt reviewed meds and instructions, understands and questions answered. All of his Antibiotics are complete and he feels great/ready to proceed. No food after midnight and clear liquids till 0430am only. JRRN Take only the following medications with a SIP of water on the morning of surgery: ___Coreg/Carvedilol DO NOT STOP ANY OF YOUR OTHER PRESCRIPTION MEDICATIONS PRIOR TO SURGERY EXCEPT THE FOLLOWING Medications to discontinue per physician ___Eliquis [address] Topete Date to take last dose____10/29/24 Original Note: Report to the Outpatient Waiting Room, entrance under the green pavilion located off [facility], at time _07:30am on date __09/29/24 . Planned Procedure Time: _09:30am .? Time changes happen often and if your time is changed the preop area will call you the afternoon before. - You and your visitor will be asked to self-screen and do not enter if you have any COVID symptoms. Please call surgeon if you need to reschedule. - A mask is optional within the hospital at this time. Patients may have clear liquids (water, carbonated beverages, clear teas, apple juice) until 3 hours prior to surgery with a maximum of 20 ounces. - No food from midnight until time of surgery and no smoking, or chewing tobacco (or any form of nicotine). No chewing gum, candy or mints. (06:30am) - Take only the following medications with a SIP of water on the morning of surgery: ___Coreg/Carvedilol DO NOT STOP ANY OF YOUR OTHER PRESCRIPTION MEDICATIONS PRIOR TO SURGERY EXCEPT THE FOLLOWING Medications to discontinue per physician ___[place] [address] Topete Date to take last dose____09/25/24 Please no make-up, nail egyptian, hairspray, perfume, deodorant, or body powder the day of surgery.? No jewelry (including any body piercings) or valuables the day of surgery, leave them at home.? Please take a shower or bath the night before, or the morning of, surgery with an antibacterial soap.? Wear comfortable, loose fitting clothing.? - Jewelry must be removed prior to entering the operating room.? Rings and piercings that are not removed may be cut off. - The hospital will not accept responsibility for valuables.? - Please leave all valuables, including medications, at home the day of surgery. If you are going home after surgery, a licensed four horse hitch driver must drive you home.? - NO public transportation without another adult if you receive anesthesia. - We recommend that an adult stay with you for 24 hours following discharge. - We also recommend that you do not drive, make important decision, drink alcoholic beverages, or take any drugs that were not prescribed by your health care provider for at least 24 hours after your discharge time. Follow any additional instructions given to you from your surgeon. Telephone instructions given to ___Patient and asked if any additional questions and then verbalized understanding. Patient advised to call surgeon office or pre surgery nurse liaison [phone] if any additional questions.
--- OUTSIDE RECORDS SUMMARY | 2024-09-29 01:08 | XMS_ITS | Clinical Summary ---
Author Organization [facility] Care Team Providers Care Locomotive Oiler Name Role Phone Unavailable Primary Care Provider [...]
--- OUTSIDE RECORDS SUMMARY | 2024-09-29 01:08 | XMS_ITS | Referral Summary ---
Author Organization [facility] [place] [address] [facility] [address] Address [address] [place] [address] Care Team Providers Care Coal Inspector Name Role Phone Domenico Rankin MD Primary Care Provider [phone] Encounters Date Type Department Care Team Description 09/08/2024 Telephone [facility] Medical Group Cardiology [address] [facility] [address] [address] Terrell Brizuela MD 07/07/2024 9:15 AM CLASSROOM INSTRUCTOR Ancillary Procedure [facility] Medical [facility] Cardiology [address] [place] [address] Coronary artery disease involving eek coronary artery of eek heart with other form of angina pectoris [...] Problem Noted Date Diagnosed Date Atrial fibrillation 05/17/2015 Overview (11/01/2016): Atrial fibrillation status post [...] on file Legal Sex Male 10:57 AM CLASSROOM INSTRUCTOR Gender Identity Not on file Sexual Orientation Not on file Last Filed Vital Signs Vital Sign Reading Time Taken Comments Blood Pressure 109/73 07/07/2024 9:51 AM CLASSROOM INSTRUCTOR Pulse 83 05/07/2024 9:47 AM CDT Temperature 34.6 C (94.2 F) 10/23/2020 1:14 PM CDT Respiratory Rate 15 06/03/2022 11:07 AM CLASSROOM INSTRUCTOR Oxygen Saturation 94% 05/07/2024 9:47 AM CDT [...] DOPPLER/CF WO CONTRAST Routine 07/07/2024 9:51 AM CLASSROOM INSTRUCTOR Coronary artery disease involving eek coronary artery of eek heart with other form of angina pectoris (HCC) from Last 3 Months Results * TRANSTHORACIC ECHO (TTE) COMPLETE W DOPPLER/CF WO CONTRAST (07/07/2024 9:51 AM CLASSROOM INSTRUCTOR) Anatomical Region Laterality Modality Ultrasound 07/07/2024 9:52 AM CLASSROOM INSTRUCTOR Narrative 07/07/2024 11:58 AM CLASSROOM INSTRUCTOR [facility] Medical Group Cardiology [address], [place] [address] [address], [place] [address] P:[phone] P:[phone] Echocardiographic Report Patient Name: HAMZAH SMILEY R : 1950 Study Date: 07/07/2024 9:52:35 AM Gender: M Tech: CLARISSE Location: [facility] Provider: TERRELL BRIZUELA Height(Cm): 178 BSA: 2.25 Weight(Kg): 102.1 Heart Rate: 76 BP: 109 / 73 Quality: Good Order Provider: TERRELL BRIZUELA PROCEDURES: Echocardiographic Report: Transthoracic echocardiogram with complete 2D, M-Mode, and color Doppler examination. With Strain Analysis. INDICATIONS: I25.118 Atherosclerotic heart disease of eek coronary artery with other forms of angina [...] FINDINGS: Interpretation Site: Exam was interpreted at [facility]. Left Ventricle: Normal left ventricular size. Moderate [...] regurgitation. Electronically Signed By: Terrell Brizuela MD, [facility] 07/07/2024 11:57:05 AM CLASSROOM INSTRUCTOR Procedure Note Terrell Brizuela MD - 07/07/2024 [facility] Medical Group Cardiology [address] [facility] [address], [place] [address] [address] [facility] [id number], [place] [address] P:[phone] P:[phone] Echocardiographic Report Patient Name: HAMZAH SMILEY R : 1950 Study Date: 07/07/2024 9:52:35 AM Gender: M Tech: CLARISSE Location: [facility] Provider: TERRELL BRIZUELA Height(Cm): 178 BSA: 2.25 Weight(Kg): 102.1 Heart Rate: 76 BP: 109 / 73 Quality: Good Order Provider: TERRELL BRIZUELA PROCEDURES: Echocardiographic Report: Transthoracic echocardiogram with complete 2D, M-Mode, and color Dopplerexamination. With Strain Analysis. INDICATIONS: I25.118 Atherosclerotic heart disease of eek coronary artery with otherforms of angina pectoris. [...] FINDINGS: Interpretation Site: Exam was interpreted at [facility]. Left Ventricle: Normal left ventricular size. Moderate [...] regurgitation. Electronically Signed By: Terrell Brizuela MD, [facility] 07/07/2024 11:57:05 AM CLASSROOM INSTRUCTOR Terrell Brizuela MD CV ECHO PROCEDURES Final Result from Last 3 Months Insurance MEDICARE [facility] MEDICARE [employer] Care Teams Coal Inspector Relationship Specialty Start Date End Date Domenico Rankin MD [address] [address] PCP - General Family Medicine 04/12/19
--- OUTSIDE RECORDS SUMMARY | 2024-09-29 01:08 | XMS_ITS | Clinical Summary ---
Author Organization [facility] [address] Address [address] [place] [address] Care Team Providers Care Director Furniture Name Role Phone Domenico Rankin MD Primary Care Provider [phone] [phone] Allergies No known active allergies Medications aspirin [...] Type Department Care Team Description 09/08/2024 Telephone [facility] Cardiology [address] [facility] [address] [address] Terrell Brizuela MD 07/07/2024 9:15 AM COMMERCIAL ARTIST LETTERING Ancillary Procedure [facility] Medical [facility] Cardiology [address] [place] [address] Coronary artery disease involving [place]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 [...] on file Legal Sex Male 10:57 AM COMMERCIAL ARTIST LETTERING Gender Identity Not on file Sexual Orientation Not on file Obstetrics History Last Filed Vital Signs Vital Sign Reading Time Taken Comments Blood Pressure 109/73 07/07/2024 9:51 AM COMMERCIAL ARTIST LETTERING Pulse 83 05/07/2024 9:47 AM CDT Temperature 34.6 C (94.2 F) 10/23/2020 1:14 PM CDT Respiratory Rate 15 06/03/2022 11:07 AM COMMERCIAL ARTIST LETTERING Oxygen Saturation 94% 05/07/2024 9:47 AM CDT [...] DOPPLER/CF WO CONTRAST Routine 07/07/2024 9:51 AM COMMERCIAL ARTIST LETTERING Coronary artery disease involving [place]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 (HCC) from Last 3 Months Results * TRANSTHORACIC ECHO (TTE) COMPLETE W DOPPLER/CF WO CONTRAST (07/07/2024 9:51 AM COMMERCIAL ARTIST LETTERING) Anatomical Region Laterality Modality Ultrasound 07/07/2024 9:52 AM COMMERCIAL ARTIST LETTERING Narrative 07/07/2024 11:58 AM COMMERCIAL ARTIST LETTERING [facility] Cardiology [address] [facility] [address] [address] [address] [facility] [address], [place] [address] P:[phone] P:[phone] Echocardiographic Report Patient Name: HAMZAH SMILEY R : 1950 Study Date: 07/07/2024 9:52:35 AM Gender: M Tech: Location: [facility] Provider: TERRELL BRIZUELA Height(Cm): 178 BSA: 2.25 Weight(Kg): 102.1 Heart Rate: 76 BP: 109 / 73 Quality: Good Order Provider: TERRELL BRIZUELA PROCEDURES: Echocardiographic Report: Transthoracic echocardiogram with complete 2D, M-Mode, and color Doppler examination. With Strain Analysis. INDICATIONS: I25.118 Atherosclerotic heart disease of [place] coronary artery with other forms of angina [...] FINDINGS: Interpretation Site: Exam was interpreted at [facility]. Left Ventricle: Normal left ventricular [...] regurgitation. Electronically Signed By: Terrell Brizuela MD, [facility] 07/07/2024 11:57:05 AM COMMERCIAL ARTIST LETTERING Procedure Note Terrell Brizuela MD - 07/07/2024 [facility] Cardiology [address] [facility] [address] [id number] [address] [facility] [address] [address] P:[phone] P:[phone] Echocardiographic Report Patient Name: HAMZAH SMILEY R : 1950 Study Date: 07/07/2024 9:52:35 AM Gender: M Tech: CLARISSE Location: [place] Ref Provider: TERRELL BRIZUELA Height(Cm): 178 BSA: 2.25 Weight(Kg): 102.1 Heart Rate: 76 BP: 109 / 73 Quality: Good Order Provider: KOUL,TERRELL PROCEDURES: Echocardiographic Report: Transthoracic echocardiogram with complete 2D, M-Mode, and color Dopplerexamination. With Strain Analysis. INDICATIONS: I25.118 Atherosclerotic heart disease of [place] coronary artery with otherforms of angina pectoris. [...] FINDINGS: Interpretation Site: Exam was interpreted at [facility]. Left Ventricle: Normal left ventricular [...] regurgitation. Electronically Signed By: Terrell Brizuela MD, [facility] 07/07/2024 11:57:05 AM COMMERCIAL ARTIST LETTERING Terrell Brizuela MD CV ECHO PROCEDURES Final Result from Last 3 Months Insurance MEDICARE [facility] MEDICARE [facility] Care Teams Director Furniture Relationship Specialty Start Date End Date Domenico Rankin MD [address] [address] PCP - General Family Medicine 04/12/19
[2024-11-02] VITALS (11 sets, daily range): BP systolic 118–152; BP diastolic 72–95; PULSE 74–97; RESP 12–20; TEMP 36.3–36.6; O2SAT 93–98; BMI 31.7
--- OUTSIDE RECORDS SUMMARY | 2024-11-02 00:38 | XMS_ITS | Clinical Summary ---
Author Organization [facility] [address] Address [address] [place] [address] Care Team Providers Care Manufacturing Team Member Name Role Phone Domenico Rankin MD Primary Care Provider [phone] [phone] Allergies No known active allergies Medications aspirin [...] Type Department Care Team Description 09/08/2024 Telephone [facility] Cardiology [address] [facility] [address] [place] [address] Spike Peterson MD from Last 3 Months Surgical History Surgery Date Site/Laterality Comments OTHER SURGICAL HISTORY Arrhythmias Afib s/p ILDEFONSO/DCCV: Medical History Medical History Date Comments Congestive heart failure (HCC) C ongestive Heart Failure Chronic coronary artery disease Coronary [...] on file Legal Sex Male 10:57 AM 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 ANALYST Gender Identity Not on file Sexual Orientation Not on file Obstetrics History Last Filed Vital Signs Vital Sign Reading Time Taken Comments Blood Pressure 109/73 07/07/2024 9:51 AM METHODS ANALYST Pulse 83 05/07/2024 9:47 AM CDT Temperature 34.6 C (94.2 F) 10/23/2020 1:14 PM CDT Respiratory Rate 15 06/03/2022 11:07 AM METHODS ANALYST Oxygen Saturation 94% 05/07/2024 9:47 AM CDT [...] 04/09/2021, 04/10/2020, Additional history exists Influenza Vaccine (Season Ended) 2025 08/16/19 21 Insurance MEDICARE [facility] MEDICARE [employer] Care Teams Manufacturing Team Member Relationship Specialty Start Date End Date Domenico Rankin MD [address] [address] PCP - General Family Medicine 04/12/19
--- OUTSIDE RECORDS SUMMARY | 2024-11-02 00:38 | XMS_ITS | Referral Summary ---
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 MEDICARE [facility] Address: [id number] [place] [address] [facility] Care Teams Nick Setter Relationship Specialty Start Date End Date Domenico Rankin MD [address] [address] PCP - General Family Medicine 04/12/19
--- OUTSIDE RECORDS SUMMARY | 2024-11-02 00:38 | XMS_ITS | Clinical Summary ---
Author Organization [facility] Care Team Providers Care Consulting Sme Name Role Phone Unavailable Primary Care Provider [...]
--- NOTE | 2024-11-02 06:23 | SUR.PREOP ---
0623- Call to Dr. Topete to notify physician patient took last dose of Eliquis Friday AM. Per Dr. Topete OK to proceed with surgery.
[2024-11-02] MEDS: LACTATED RINGERS 1,000 ML 30 ML IV CONT ×2 (06:45→09:30)
[2024-11-02] MEDS: ACETAMINOPHEN 500 MG TABLET 1000 MG PO (06:55)
[2024-11-02] MEDS: KETOROLAC 15 MG/ML VIAL (*BKC) IV PUSH (06:56)
--- NOTE | 2024-11-02 07:13 | P.PNAN_ITS ---
Anes - Initial Pre Proc Eval Procedure: Operation Date: 11/02/24 07:30 Proposed Procedures p Laparoscopic Umbilical Hernia Repair with Mesh, Davinci Assisted - Amos Topete DO Date/Time: 11/02/24 07:13 Surgeon: Amos Topete DO Pre Op Diagnosis: 2cm umbilical hernia Patient Data Age: 73 Gender: M Height: 1.78 m Weight: 105.6 kg Allergies Allergy/AdvReac Type Severity Reaction Status Date / Time No Known Allergies Allergy Unknown Verified 10/18/24 08:49 Home Medications ?Medication ?Instructions ?Recorded ?Confirmed ?Type apixaban 5 mg tablet (Eliquis) 5 mg PO BID 06/15/19 10/18/24 History aspirin 81 mg tablet,delayed 81 mg PO DAILY 06/15/19 10/07/24 History release (Adult Low Dose Aspirin) lisinopril 5 mg tablet 5 mg PO DAILY 06/15/19 10/07/24 History pantoprazole 40 mg tablet,delayed 40 mg PO QAM 06/15/19 10/07/24 History release spironolactone 25 mg tablet 25 mg PO DAILY 06/15/19 10/18/24 History carvedilol 6.25 mg tablet 6.25 mg PO Q12H 02/14/21 10/07/24 History icosapent ethyl 1 gram capsule 2 g PO BID 02/14/21 10/07/24 History (Vascepa) rosuvastatin 40 mg tablet 40 mg PO DAILY 05/16/23 10/07/24 History Patient hx anesthesia problems: none Family hx anesthesia problems: none Results Review: All pre-operative results and documents have been reviewed as part of the pre- operative evaluation. [facility] Past Medical History Medical History BMI 32.0-32.9,adult Acute non-recurrent maxillary sinusitis UTI (urinary tract infection) Essential hypertension BMI 33.0-33.9,adult Personal history of colonic polyps Normal colonoscopy 2012.Sessile polyp , tubular adenoma, ascending colon 05/20/2023 with recheck in 5 years. At low risk for fall Encounter for prostate cancer screening PSA 1.37 on 02/07/2023. PSA 1.82 on 02/26/2024. Hyperkalemia (07/11/22) potassium slightly elevated at 5.4 on 07/11/2022. Potassium normal at 4.3 on 07/26/2022. repeat labs 07/26/2022 with potassium normal at 4.3. COVID-19 02/23/22 positive home test. Tested positive 07/09/2023. Obesity (BMI 30.0-34.9) BPH without obstruction/lower urinary tract symptoms Male erectile dysfunction, unspecified Encounter for screening for malignant neoplasm of lung in former smoker who quit in past 15 years with 30 pack year history or greater CT lung negative on 11/08/2020. CT 11/13/2022 Was negative with recheck in [address] lungs 11/17/2023 Was negative. Colon cancer screening colonoscopy -2012 with recheck in 10 years Contracture of joint of finger of right hand Acute bronchitis (~09/2023) Chest x-ray with no active lung disease 10/30/2023. Chest x-ray on 09/28/2024 with possible early pneumonia on the left with prominent markings bilaterally in the lower lobes. Atherosclerosis of coronary artery of [facility] [facility] [place] heart without angina pectoris 2 stents placed around 2013 LAD, RCA. Nuclear stress test with no ischemia and ejection fraction 66% on 04/29/2023. Bilateral cataracts treated surgically Surgical History Surgical History Hx of appendectomy Family History Family History Mother Patient's mother is , Onset Age: 85 Acute myocardial infarction Sibling Patient's brother is , Onset Age: 61 Social History Social History Social History: Quit 2010, 40 pack years Smoking packs per day: 1.5 Smoking cigarettes per day: 30.0 Years smoked: 40 Smoking pack-years: 60.00 Smoking status: Former smoker Tobacco type: cigarettes Second hand tobacco smoke exposure: Yes Smoking end date: 07/28/10 Alcohol intake: current Drinks per week: 6 Alcohol use details: BEERS Substance use: never Substance use type: does not use Lack of Transportation: No Lack of Food: Never True Current Housing: I Have Housing Concerned About Future Housing: No Difficulty Paying Gas/Electric Bills: No Difficulty Paying for Meds: No Currently Unemployed: No Education: High School Diploma/GED Difficulty w/ Childcare or Family Care: No Living arrangements: with family Additional living arrangements comments: Spiritual care concerns: No Anes - Eval Final PreProcedure Day of Procedure 11/02/24 07:13 Patient weight: obese Heart: regular rate and rhythm Lungs: decreased breath sounds Airway: Mallampati scale class III Neurological: alert and oriented Last oral intake: >/= 8 hours ASA classification: III Emergent: no Anesthetic plan: proceed Anesthesia type and monitoring: general ETT and standard monitoring Results Review: All pre-operative results and documents have been reviewed as part of the pre- operative evaluation. Informed Consent: The patient's anesthetic plan and its attendant risks and benefits were discussed with the patient/family/POA. Questions were solicited and answers provided to the satisfaction of the patient/family/POA.
--- NOTE | 2024-11-02 07:16 | WPDHPUPDATE1 ---
History and Physical Update Update Date/Time: 11/02/24 07:16 History and Physical has been reviewed, including an updated exam of the patient. There are NO changes in the patient's condition. Risks, benefits, and alternatives have been discussed and questions answered. Patient agrees to proceed with procedure.
--- NOTE | 2024-11-02 07:16 | PM.IMHP ---
H&P: HPI History of Present Illness Date/Time: 11/02/24 07:16 Chief Complaint: umbilical hernia Narrative: 73 yo man presents for umbilical hernia repair. He reports no changes since last seen in office. He last took his Eliquis Friday morning. Review of Systems Review of Systems: All systems reviewed & are unremarkable except as noted in HPI and below Constitutional: Constitutional: Denies chills, Denies fever(s), Denies headache(s) and Denies weight loss Eyes: Eyes: Denies change in vision ENT: Denies dizziness, Denies headache(s), Denies neck mass and Denies throat swelling Cardiovascular: Cardiovascular: Denies chest pain, Denies lightheadedness and Denies dyspnea Respiratory: Respiratory: Denies cough, Denies dyspnea and Denies wheezing Gastrointestinal: Gastrointestinal: Denies abdominal pain, Denies change in bowel habits, Denies nausea and Denies vomiting Genitourinary: Genitourinary: Denies hematuria and Denies dysuria Musculoskeletal: Musculoskeletal: Reports as per HPI Integumentary/Breasts: Skin/Breast: Reports as per HPI Neurologic: Denies dizziness and Denies headache(s) Allergic/Immunologic: Allergic/Immunologic: Denies throat swelling and Denies wheezing [facility] Past Medical History Medical History BMI 32.0-32.9,adult Acute non-recurrent maxillary sinusitis UTI (urinary tract infection) Essential hypertension BMI 33.0-33.9,adult Personal history of colonic polyps Normal colonoscopy 2012.Sessile polyp , tubular adenoma, ascending colon 05/20/2023 with recheck in 5 years. At low risk for fall Encounter for prostate cancer screening PSA 1.37 on 02/07/2023. PSA 1.82 on 02/26/2024. Hyperkalemia (07/11/22) potassium slightly elevated at 5.4 on 07/11/2022. Potassium normal at 4.3 on 07/26/2022. repeat labs 07/26/2022 with potassium normal at 4.3. COVID-19 02/23/22 positive home test. Tested positive 07/09/2023. Obesity (BMI 30.0-34.9) BPH without obstruction/lower urinary tract symptoms Male erectile dysfunction, unspecified Encounter for screening for malignant neoplasm of lung in former smoker who quit in past 15 years with 30 pack year history or greater CT lung negative on 11/08/2020. CT 11/13/2022 Was negative with recheck in [address] lungs 11/17/2023 Was negative. Colon cancer screening colonoscopy -2012 with recheck in 10 years Contracture of joint of finger of right hand Acute bronchitis (~09/2023) Chest x-ray with no active lung disease 10/30/2023. Chest x-ray on 09/28/2024 with possible early pneumonia on the left with prominent markings bilaterally in the lower lobes. Atherosclerosis of coronary artery of [place] heart without angina pectoris 2 stents placed around 2013 LAD, RCA. Nuclear stress test with no ischemia and ejection fraction 66% on 04/29/2023. Bilateral cataracts treated surgically Surgical History Surgical History Hx of appendectomy Family History Family History Mother Patient's mother is , Onset Age: 85 Acute myocardial infarction Sibling Patient's brother is , Onset Age: 61 Social History Social History Social History: Quit 2010, 40 pack years Smoking packs per day: 1.5 Smoking cigarettes per day: 30.0 Years smoked: 40 Smoking pack-years: 60.00 Smoking status: Former smoker Tobacco type: cigarettes Second hand tobacco smoke exposure: Yes Smoking end date: 07/28/10 Alcohol intake: current Drinks per week: 6 Alcohol use details: BEERS Substance use: never Substance use type: does not use Lack of Transportation: No Lack of Food: Never True Current Housing: I Have Housing Concerned About Future Housing: No Difficulty Paying Gas/Electric Bills: No Difficulty Paying for Meds: No Currently Unemployed: No Education: High School Diploma/GED Difficulty w/ Childcare or Family Care: No Living arrangements: with family Additional living arrangements comments: Spiritual care concerns: No Meds Home Medications and Allergies Home Medications ?Medication ?Instructions ?Recorded ?Confirmed ?Type apixaban 5 mg tablet (Eliquis) 5 mg PO BID 06/15/19 10/18/24 History aspirin 81 mg tablet,delayed 81 mg PO DAILY 06/15/19 10/07/24 History release (Adult Low Dose Aspirin) lisinopril 5 mg tablet 5 mg PO DAILY 06/15/19 10/07/24 History pantoprazole 40 mg tablet,delayed 40 mg PO QAM 06/15/19 10/07/24 History release spironolactone 25 mg tablet 25 mg PO DAILY 06/15/19 10/18/24 History carvedilol 6.25 mg tablet 6.25 mg PO Q12H 02/14/21 10/07/24 History icosapent ethyl 1 gram capsule 2 g PO BID 02/14/21 10/07/24 History (Vascepa) rosuvastatin 40 mg tablet 40 mg PO DAILY 05/16/23 10/07/24 History Allergies Allergy/AdvReac Type Severity Reaction Status Date / Time No Known Allergies Allergy Unknown Verified 10/18/24 08:49 Exam Const: General: no acute distress and alert Orientation/consciousness: patient oriented x3 HENMT: Head: normocephalic and atraumatic Ears: hearing grossly normal bilaterally Face/Nose/Sinus: Normal nares present Mouth: Yes Normal oral and palatal mucosa present Eyes: Periorbital: periorbital findings normal Sclera: sclerae normal EOM: EOMs intact bilaterally Neck: Neck: normal visual inspection, no lymphadenopathy and trachea midline Chest: Chest palpation & inspection: normal inspection of the chest Resp: Effort & Inspection: normal respiratory effort Auscultation: clear to auscultation bilaterally Cardio: Jugular venous distension: no JVD Rate: regular rate Rhythm: regular rhythm Heart sounds: S1 normal heart sound present and S2 normal heart sound present Peripheral pulses: Peripheral pulses 2+ throughout GI: Inspection: normal to inspection GI Palp: Yes Soft to palpation, No Tenderness to palpation present (GI), No Guarding due to palpation present (GI), Yes Hernia present umbilical < 3 cm and No Rebound tenderness present Percussion: Yes normal to percussion Auscultation: normal bowel sounds : General: Yes no CVA tenderness Back/Spine/Pelvis: Back: no CVA tenderness Neuro: General: patient oriented x3, no focal motor deficits and CN's II-XI intact bilaterally Cognition (Neuro): normal cognition Speech: normal speech Motor exam (neuro): 5/5 motor strength present throughout Extrem: General: capillary refill normal and no clubbing, cyanosis or edema Assessment and Plan Assessment and plan (1) Umbilical hernia without mention of obstruction or gangrene: Qualifiers: Obstruction and gangrene presence: without obstruction or gangrene Qualified Code(s): K42.9 - Umbilical hernia without obstruction or gangrene Code(s): K42.9 - Umbilical hernia without obstruction or gangrene Status: Acute Assessment and Plan: I have recommended laparoscopic umbilical hernia repair with mesh, da Kamari assisted. I have discussed the procedure, risks, benefits, and alternatives with the patient. All questions answered. No changes since last seen in office.
[2024-11-02] MEDS: ceFAZolin 2 GM/D5W 50 ML 2 GM/50 ML BAG IVPB (07:28)
[2024-11-02] MEDS: BUPIVACAINE/EPINEPHRINE 0.5% 50 ML VIAL 30 ML INFILTRATE (07:57)
--- NOTE | 2024-11-02 08:41 | W.PM.PROC2 ---
Procedure Note - Detailed Date of Procedure 11/02/24 Pre-op Diagnosis 2cm umbilical hernia Post-op Diagnosis Same Procedure Performed Laparoscopic 2 cm umbilical hernia repair with mesh, da Kamari assisted Surgeon Amos Topete DO Anesthesia General and Local (0.5% bupivacaine with epinephrine) Indications This is a 73-year-old man who presented with an umbilical bulge that he 1st noticed about 1 year ago. It has gradually increased in size. He does not have much pain with it but notices some occasional discomfort. A 2 cm umbilical hernia was identified on exam. Discussions were made with the patient about treatment options and decision was made to proceed with robotic assisted laparoscopic umbilical hernia repair with mesh. Findings Robotic assisted laparoscopic umbilical hernia repair with mesh was performed. The patient was found to have a 2 cm umbilical hernia containing a piece of omentum and preperitoneal fat. The omentum was reduced and the preperitoneal fat around the hernia defect was excised. A robotic intraperitoneal onlay mesh technique was utilized for repair. A Ventralight ST 15 cm x 10 cm mesh was placed. No specimens were obtained for pathology. Description of Procedure Procedure as well as risks, benefits, and alternatives were discussed with the patient. Written consent was obtained and placed in chart prior to procedure. Patient was brought back to surgical suite. He was placed supine on operating table. Time-out was done to confirm patient and procedure. He was then intubated by the anesthesia department. A bump was placed under his left hip, and the bed was flexed slightly to extend the space between his costal margin and iliac crest. His abdomen was prepped and draped in sterile fashion using chlorhexidine prep. A 5 millimeter incision was made in the left upper quadrant, and a 5 millimeter Optiview trocar was advanced through the abdominal layers under direct visualization. Once inside the abdominal cavity, carbon dioxide insufflation was used to create a pneumoperitoneum. His abdomen was inspected. An 8 millimeter incision was made in the left lower quadrant, and an 8 millimeter robotic trocar was placed under direct visualization. Another 8 millimeter incision was made in the left lateral abdomen, and an 8 millimeter robotic trocar was placed under direct visualization. 0.5% bupivacaine with epinephrine was infiltrated around each port site. The 5 millimeter port was removed, and an 8 mm robotic trocar was placed under direct visualization. The robotic arms were brought up to the patient's bedside and secured to the ports. The camera and instruments were inserted, and I then moved over to the robotic console and took control of the camera and instruments. After careful thorough inspection of the abdominal cavity, I began my dissection at the hernia. The preperitoneal fat and hernia sac was excised around the hernia defect using scissors with electrocautery. The falciform ligament was also taken down for several cm cephalad to allow adequate clearance mesh placement. I then measured the hernia size. The hernia measured 2 cm. The fascia was closed using an 0-Stratafix running suture in a vertical fashion. A Ventralight ST 15 cm x 10 cm mesh was then placed within the abdominal cavity. This was oriented vertically with the mesh centered on the hernia defect. The mesh was then secured at the center and 4 corners using 3-0 Vicryl simple interrupted sutures. The entire perimeter of the mesh was then secured to the abdominal wall using 2-0 Stratafix absorbable running suture. The repair was inspected, and one final inspection was made around the abdominal cavity. The robotic instruments were then removed, and the robotic arms were disengaged from the trocars. The ports were then removed under direct visualization, the camera was removed, and the pneumoperitoneum was released. The skin of the incisions was then approximated using 4-0 Monocryl subcuticular suture. Exofin glue was then applied on top. The patient was then awakened from anesthesia, extubated, and transferred to recovery. Implants Ventralight ST 15 cm x 10 cm mesh Estimated Blood Loss 5 Complications No immediate complications Condition Stable Disposition Same day [facility] Billing Surgery - Charge Forward: Surgery Billing
== END 2024-11-02 11:05 | disposition home or self-care (01) ==
PROVIDERS: PCP Family Medicine; Visit Provider Surgery
PROC: (CPT 49591; principal; 2024-11-02 07:30)
DX: K42.9 Umbilical hernia without obstruction or gangrene (principal); I10 Essential (primary) hypertension; E87.5 Hyperkalemia; N40.0 Benign prostatic hyperplasia without lower urinary tract symptoms; N52.9 Male erectile dysfunction, unspecified; I25.10 Atherosclerotic heart disease of native coronary artery without angina pectoris; E66.9 Obesity, unspecified; Z68.31 Body mass index [BMI] 31.0-31.9, adult; Z79.01 Long term (current) use of anticoagulants; Z79.82 Long term (current) use of aspirin; Z79.899 Other long term (current) drug therapy; Z98.890 Other specified postprocedural states; Z87.891 Personal history of nicotine dependence; Z86.0100 Personal history of colon polyps, unspecified; Z82.49 Family history of ischemic heart disease and other diseases of the circulatory system
CPT/HCPCS: 49591; S2900; 36415; 86850; 86900; 86901; A9270; C1781; J0330; J0690; J1100; J1171; J1885; J2003; J2405; J2704; J7030; J7120

== ENCOUNTER 2024-11-23 09:44 | Outpatient (CLI) | payer MEDICARE, SELFPAY ==
--- NOTE | ~2024-11-23 | CT_ITS ---
CT Scan of the Chest without Contrast: Clinical Indication: Lung cancer screening, nicotine dependence Technique: Contiguous sections were acquired throughout the chest without intravenous contrast. Dose reduction technique was used on this scan by utilizing automated exposure control and iterative recon struction technique. The dose-length product (DLP) was 157.84 mGy-cm. COMPARISON: 11/17/2023 Findings: There is no evidence of any significant mediastinal, hilar or axillary lymphadenopathy. Extensive cor onary artery calcifications are present. There is no evidence of pleural or pericardial effusion. Stable probable focal atelectatic change at the medial right lung base.. There is mild emphysema and probable minimal chronic interstitial change. Images through the upper abdomen reveal no abnormalities. Chronic appearing T12 compression fracture present. Impression: Lung RADS 2: Benign appearance. 12 month follow-up screening CT advised. Reviewed, dictated and finalized at [facility]. Impression: Lung RADS 2: Benign appearance. 12 month follow-up screening CT advised.
--- OUTSIDE RECORDS SUMMARY | 2024-11-23 10:44 | XMS_ITS | Clinical Summary ---
Author Organization [facility] Care Team Providers Care Gummed Tape Press Operator Name Role Phone Unavailable Primary Care Provider [...]
--- OUTSIDE RECORDS SUMMARY | 2024-11-23 10:44 | XMS_ITS | Clinical Summary ---
Author Organization [facility] [address] Address [address] [place] [address] Care Team Providers Care Tape Controlled Machine Stitcher Name Role Phone Domenico Rankin MD Primary Care Provider [phone] Allergies No known active allergies Medications aspirin 81 mg enteric coated tablet Take 1 tablet (81 mg total) by mouth daily 30 tablet 12 9 Active icosapent ethyL (VASCEPA) 1 gram capsule TAKE 2 CAPSULES BY MOUTH TWICE DAILY 360 capsule 3 3 Active carvediloL (COREG) 6.25 mg tablet TAKE 1 TABLET BY MOUTH TWICE DAILY WITH MEALS 180 tablet 3 4 Active rosuvastatin (CRESTOR) 40 mg tablet TAKE 1 TABLET BY MOUTH AT NIGHT 90 tablet [address] (PROTONIX) 40 mg EC tablet TAKE 1 TABLET BY MOUTH DAILY 90 tablet 3 4 Active spironolactone (ALDACTONE) 25 mg tablet TAKE 1 TABLET BY MOUTH DAILY 90 tablet 3 4 Active lisinopriL (PRINIVIL,ZEST RIL) 5 mg tablet TAKE 1 TABLET BY MOUTH DAILY 90 tablet 3 4 Active Eliquis 5 mg tablet TAKE 1 TABLET BY MOUTH TWICE DAILY 180 tablet 3 4 Active Vascepa 1 gram capsule TAKE 2 CAPSULES BY MOUTH TWICE DAILY 360 capsule 3 5 Active icosapent ethyL (Vascepa) 1 gram capsule Take 2 capsules (2 g total) by mouth 2 (two) times a day 360 capsule 3 4 025 Discontinued Active Problems Problem Noted Date Diagnosed Date Atrial fibrillation 05/17/2015 Overview (11/01/2016): Atrial fibrillation status post cardioversion Encounters Date Type Department Care Team Description 09/08/2024 Telephone [facility] Cardiology [address] [facility] [address] [address] Spike Peterson MD from Last 3 [...] on file Legal Sex Male 10:57 AM CLOTH SANDER Gender Identity Not on file Sexual Orientation Not on file Obstetrics History Last Filed Vital Signs Vital Sign Reading Time Taken Comments Blood Pressure 109/73 07/07/2024 9:51 AM CLOTH SANDER Pulse 83 05/07/2024 9:47 AM CDT Temperature 34.6 C (94.2 F) 10/23/2020 1:14 PM CDT Respiratory Rate 15 06/03/2022 11:07 AM CLOTH SANDER Oxygen Saturation 94% 05/07/2024 9:47 AM CDT [...] (Season Ended) 2025 08/16/19 21 Insurance MEDICARE [facility] MEDICARE [employer] Care Teams Tape Controlled Machine Stitcher Relationship Specialty Start Date End Date Domenico Rankin MD [address] [address] PCP - General Family Medicine 04/12/19
--- OUTSIDE RECORDS SUMMARY | 2024-11-23 10:44 | XMS_ITS | Referral Summary ---
Author Organization [facility] [address] Address [address] [place] [address] Care Team Providers Care Lockstitch Binder Name Role Phone Domenico Rankin MD Primary Care Provider [phone] [phone] Encounters Date Type Department Care Team Description 09/08/2024 Telephone [facility] Medical [facility] Cardiology [address] [place] [phone] Spike Peterson MD from Last 3 [...] on file Legal Sex Male 10:57 AM RISK CONTROL FIELD REPRESENTATIVE Gender Identity Not on file Sexual Orientation Not on file Last Filed Vital Signs Vital Sign Reading Time Taken Comments Blood Pressure 109/73 07/07/2024 9:51 AM RISK CONTROL FIELD REPRESENTATIVE Pulse 83 05/07/2024 9:47 AM CDT Temperature 34.6 C (94.2 F) 10/23/2020 1:14 PM CDT Respiratory Rate 15 06/03/2022 11:07 AM RISK CONTROL FIELD REPRESENTATIVE Oxygen Saturation 94% 05/07/2024 9:47 AM CDT Inhaled Oxygen Concentration - - Weight 102.1 kg (225 lb) 05/07/2024 9:47 AM CDT Height 177.8 cm (5' 10 ) 05/07/2024 9:47 AM CDT Body Mass Index 32.28 05/07/2024 9:47 AM CDT Plan of Treatment Not on file Insurance MEDICARE [facility] MEDICARE [facility] Care Teams Lockstitch Binder Relationship Specialty Start Date End Date Domenico Rankin MD [facility] [address] [address] PCP - General Family Medicine 04/12/19
== END 2024-11-23 09:45 | disposition home or self-care (01) ==
LOC: ANHIMG 09:45
PROVIDERS: PCP Family Medicine; Visit Provider Physician Assistant
DX: Z12.2 Encounter for screening for malignant neoplasm of respiratory organs (principal); Z87.891 Personal history of nicotine dependence
CPT/HCPCS: 71271

== ENCOUNTER 2025-07-03 00:55 | Observation (INO) | payer MEDICARE, SELFPAY ==
[2025-07-03] VITALS (23 sets, daily range): BP systolic 105–132; BP diastolic 67–87; PULSE 87–113; RESP 12–32; TEMP 36.6–37; O2SAT 94–99; BMI 32.5
--- NOTE | ~2025-07-03 | XR_ITS ---
Examination: XR chest 1V portable Clinical History: cough, dyspnea Comparison: 10/07/2024 Technique: Portable AP Findings: Heart size enlarged. Mild chronic interstitial changes or scarring. No acute bony abnormality. IMPRESSION: 1. No acute cardiopulmonary findings given portable technique. Reviewed, dictated and finalized at location R. REGISTER MECHANIC
--- NOTE | ~2025-07-03 | CT_ITS ---
CTA CHEST CLINICAL HISTORY: dyspnea. tachycardia . COMPARISON: Chest x-ray today CT chest 11/23/2024 TECHNIQUE: Helical CTA performed from thoracic inlet to upper abdomen IV contrast information not listed in PACS Coronal, sagittal reformats. Multiplanar MIPS CT images acquired with automatic exposure control for dose reduction DLP: 715 mGy-cm FINDINGS: Pulmonary arteries: No PE. Thoracic Aorta: No dissection or aneurysm. Heart/pericardium: Enlarged. Coronary artery calcification. RV/LV ratio: Normal. Lungs/Pleura: Emphysema. Scattered scarring. Tracheobronchial tree: Patent. Nodes: No enlarged nodes. Small calcification right hilum. Bones: No acute bony abnormality. Soft tissues: Unremarkable. Visualized upper abdomen: Hepatic steatosis. IMPRESSION: 1. No PE or other acute cardiopulmonary findings. Reviewed, dictated and finalized at location R. P OPERATOR
--- OUTSIDE RECORDS SUMMARY | 2025-07-03 04:29 | XMS_ITS | Clinical Summary ---
Author Organization [facility] [address] Address [address] [place] [address] Care Team Providers Care Plow Shaker Name Role Phone Domneico Rankin MD Primary Care Provider [phone] [phone] Allergies No known active allergies Medications aspirin 81 mg enteric coated tablet Take 1 tablet (81 mg total) by mouth daily 30 tablet 12 9 Active carvediloL (COREG) 6.25 mg tablet TAKE [...] DAILY 90 tablet 3 4 Active lisinopriL (PRINIVIL,ZESTR [place]) 5 mg tablet TAKE 1 TABLET BY MOUTH DAILY 90 tablet 3 4 Active Eliquis 5 mg tablet TAKE 1 TABLET BY MOUTH TWICE DAILY 180 tablet 3 4 Active Vascepa 1 gram capsule TAKE 2 CAPSULES BY MOUTH TWICE DAILY 360 capsule 3 5 Active icosapent ethyL (VASCEPA) 1 gram capsule TAKE 2 CAPSULES BY MOUTH TWICE DAILY 360 capsule 3 3 06/14/20 25 Discontinu ed(Therapy completed) Active Problems Problem Noted Date Diagnosed Date Atrial fibrillation 05/17/2015 Overview (11/01/2016): Atrial fibrillation status post cardioversion Encounters Date Type Department Care Team Description 06/14/2025 11:30 AM CERTIFIED NURSE MIDWIFE Office Visit 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 pectoris (Primary Dx); Status post angioplasty with stent; PAF (paroxysmal atrial fibrillation); Chronic anticoagulation; REGINA on CPAP; Lipid screening from Last 3 Months Surgical History Surgery [...] on file Legal Sex Male 10:57 AM CERTIFIED NURSE MIDWIFE Gender Identity Not on file Sexual Orientation Not on file Last Filed Vital Signs Vital Sign Reading Time Taken Comments Blood Pressure 116/62 06/14/2025 11:07 AM CERTIFIED NURSE MIDWIFE Pulse 85 06/14/2025 11:07 AM CERTIFIED NURSE MIDWIFE Temperature 34.6 C (94.2 F) 10/23/2020 1:14 PM CDT Respiratory Rate 14 06/14/2025 11:07 AM CERTIFIED NURSE MIDWIFE Oxygen Saturation 97% 06/14/2025 11:07 AM CERTIFIED NURSE MIDWIFE Inhaled Oxygen Concentration - - Weight 101.2 kg (223 lb) 06/14/2025 11:07 AM CERTIFIED NURSE MIDWIFE Height 177.8 cm (5' 10) 06/14/2025 11:07 AM CERTIFIED NURSE MIDWIFE Body Mass Index 32 06/14/2025 11:07 AM CERTIFIED NURSE MIDWIFE Plan of Treatment Health Maintenance Due Date Last Done Comments Colon Cancer Screening-Colonoscopy 1950 Depression Screening 1950 Hepatitis C Screening 1950 DTaP/Tdap/Td Vaccine (1 - Tdap) 1960 Hepatitis B Screening 12/15/1967 Zoster Vaccine (1 of 2) 12/15/1999 Abdominal Aortic Aneurysm (A AA) Screen 2014 Well Visit 65+ 2014 Pneumococcal vaccine 65+ (2 of 2 - PCV20 or PCV21) 08/16/2021 08/16/2020 Fall Risk Assessment 04/08/2023 04/08/2022, 04/09/2021, 04/10/2020, Additional history exists Influenza Vaccine (#1) 2025 06/14/2024, 2020 Procedures Procedure Name Priority Date/Time Associated Diagnosis Comments POCT LIPID PANEL Routine 06/14/2025 11:1 2 AM CERTIFIED NURSE MIDWIFE Lipid screening from Last 3 Months Results * (ABNORMAL) POCT lipid panel (06/14/2025 11:12 AM CERTIFIED NURSE MIDWIFE) Cholesterol, POC 124 <200 MG/DL HDL, POC 44 >=40 mg/dL Triglycerides, POC 211(A) <=149 mg/dL LDL Cholesterol POC 38 <=129 mg/dL Chol/HDL Ratio, POC 2.8 NONE Non-HDL Cholesterol, POC 81 NONE mg/dL Cholesterol Total, POC 124 30 - 199 mg/dL Capillary blood 06/14/2025 1 1:12 AM CERTIFIED NURSE MIDWIFE Spike Peterson MD POINT OF CARE TEST ORDERABLES Fi nal Result from Last 3 Months Insurance MEDICARE [employer]ARP MEDICARE [facility] Address: [address] [address] [facility] Care Teams Plow Shaker Relationship Specialty Start Date End Date Domenico Rankin MD [address] [address] PCP - General Family Medicine 04/12/19
--- NOTE | 2025-07-03 04:32 | ECG_ITS ---
Test Date: 2025-07-03 04:50:31 Measurements Intervals Thayer Rate: 106 P: 0 VT: 0 QRS: 21 QRSD: 97 T: 31 QT: 345 QTc: 459 Interpretive Statements ATRIAL FIBRILLATION WITH RAPID VENTRICULAR RESPONSE ABNORMAL ECG Compared to ECG 09/22/2024 10:43:10 HEART RATE HAS INCREASED Electronically Signed On 07-03-2025 09:26:38 MARITIME OFFICER by Franklin Oseguera D.O.
--- NOTE | 2025-07-03 04:32 | ED.SOB ---
HPI - SOB/Dyspnea General Chief Complaint: Shortness of Breath/Dyspnea Stated Complaint: SOB Time Seen by Provider: 07/03/25 04:21 Source: patient and family Mode of arrival: ambulatory Limitations: no limitations History of Present Illness HPI Narrative: Patient is a 74-year-old male presents to the emergency department complaining of difficulty breathing. Patient notes that he started to feel difficulty breathing yesterday and has persisted, feels some chest congestion with it, a slight discomfort in his left ribs. Notes that he recently had a URI with nasal congestion and was prescribed a Z-Kwabena which he finished yesterday. Denies any known fevers. Admits to history of heart disease with stents in his heart x2 about 12 years ago, denies history of heart failure. Admits to history of atrial fibrillation for which he is on Xarelto in taking it as prescribed. Denies melena or hematochezia. Denies any focal weakness or numbness. Admits to chills. Denies any abdominal pain, nausea, vomiting, recent injuries. Related Data Home Medications ?Medication ?Instructions ?Recorded ?Confirmed ?Last Taken ?Type apixaban 5 mg tablet (Eliquis) 5 mg PO BID 06/15/19 05/18/25 10/30/24 History Held on 11/02/24. Instructions: Resume on 11/03/24. aspirin 81 mg tablet,delayed 81 mg PO DAILY 06/15/19 05/18/25 11/01/24 History release (Adult Low Dose Aspirin) lisinopril 5 mg tablet 5 mg PO DAILY 06/15/19 05/18/25 11/01/24 History spironolactone 25 mg tablet 25 mg PO DAILY 06/15/19 05/18/25 11/01/24 History carvedilol 6.25 mg tablet 6.25 mg PO Q12H 02/14/21 05/18/25 11/02/24 History icosapent ethyl 1 gram capsule 2 g PO BID 02/14/21 05/18/25 05/19/23 History (Vascepa) rosuvastatin 40 mg tablet 40 mg PO DAILY 05/16/23 05/18/25 11/01/24 History Allergies Allergy/AdvReac Type Severity Reaction Status Date / Time No Known Allergies Allergy Unknown Verified 07/03/25 03:12 Review of Systems Review of Systems: A 10 system review of systems was completed on the patient and is negative except for what is stated in the HPI. Nursing and ancillary documentation was reviewed. FOR[facility]LY [facility] Past Medical History Medical History (Updated 07/03/25 @ 08:20 by Leandro Gomez DO) Elevated fasting glucose Glucose 114 with hemoglobin A1c 6.2 on 08/08/2021. glucose 113 with hemoglobin A1c 6.1 on 01/19/2022. Glucose 117 with hemoglobin A1c 6.3 on 07/11/2022. Fasting glucose 112 with hemoglobin A1c 6.1 on 02/07/2023. fasting glucose 104 with hemoglobin A1c 6.2 on 08/20/2023. Fasting glucose 102 with hemoglobin A1c 6.7 on 02/26/2024. Seasonal allergic rhinitis Fatigue Controlled diabetes mellitus without complication, without long-term current use of insulin Glucose 114 with hemoglobin A1c 6.2 on 08/08/2021. glucose 113 with hemoglobin A1c 6.1 on 01/19/2022. Glucose 117 with hemoglobin A1c 6.3 on 07/11/2022. Fasting glucose 112 with hemoglobin A1c 6.1 on 02/07/2023. fasting glucose 104 with hemoglobin A1c 6.2 on 08/20/2023. Fasting glucose 102 with hemoglobin A1c 6.7 on 02/26/2024. Fasting glucose 104, hemoglobin A1c 6.3 With urine microalbumin ratio of 8 and GFR 85 on 05/19/2025. BMI 32.0-32.9,adult Acute non-recurrent maxillary sinusitis UTI (urinary tract infection) Essential hypertension BMI 33.0-33.9,adult Personal history of colonic polyps Normal colonoscopy 2012.Sessile polyp , tubular adenoma, ascending colon 05/20/2023 with recheck in 5 years. At low risk for fall Encounter for prostate cancer screening PSA 1.37 on 02/07/2023. PSA 1.82 on 02/26/2024. PSA 2.26 on 05/19/2025. Hyperkalemia (07/11/22) potassium slightly elevated at 5.4 on 07/11/2022. Potassium normal at 4.3 on 07/26/2022. repeat labs 07/26/2022 with potassium normal at 4.3. COVID-19 02/23/22 positive home test. Tested positive 07/09/2023. Obesity (BMI 30.0-34.9) BPH without obstruction/lower urinary tract symptoms Male erectile dysfunction, unspecified Encounter for screening for malignant neoplasm of lung in former smoker who quit in past 15 years with 30 pack year history or greater CT lung negative on 11/08/2020. CT 11/13/2022 Was negative with recheck in [address] lungs 11/17/[address] of the chest on 11/23/2024 was negative. Colon cancer screening colonoscopy -2012 with recheck in 10 years . Tubular adenoma on 05/20/2023 with recheck in 5 years. Contracture of joint of finger of right hand Acute bronchitis (~09/2023) Chest x-ray with no active lung disease 10/30/2023. Chest x-ray on 09/28/2024 with possible early pneumonia on the left with prominent markings bilaterally in the lower lobes. Atherosclerosis of coronary artery of [place] heart without angina pectoris 2 stents placed around 2012 LAD, RCA. Nuclear stress test with no ischemia and ejection fraction 66% on 04/29/2023. Bilateral cataracts treated surgically Surgical History Surgical History Hx of umbilical hernia repair 11/02/24 Laparoscopic 2 cm umbilical hernia repair with mesh, da Kamari assisted Dr. Topete Hx of appendectomy Family History Family History Mother Patient's mother is , Onset Age: 85 Acute myocardial infarction Sibling Patient's brother is , Onset Age: 61 Social History Social History Social History: Quit 2010, 40 pack years Smoking packs per day: 1.5 Smoking cigarettes per day: 30.0 Years smoked: 40 Smoking pack-years: 60.00 Smoking status: Former smoker Tobacco type: cigarettes Second hand tobacco smoke exposure: Yes Smoking end date: 07/28/10 Alcohol intake: current Drinks per week: 6 Alcohol use details: BEERS Substance use: never Substance use type: does not use Lack of Transportation: No Lack of Food: Never True Current Housing: I Have Housing Concerned About Future Housing: No Difficulty Paying Gas/Electric Bills: No Difficulty Paying for Meds: No Currently Unemployed: No Education: High School Diploma/GED Difficulty w/ Childcare or Family Care: No Living arrangements: with family Additional living arrangements comments: Spiritual care concerns: No Exam Narrative: CONST: No acute distress. Well nourished. HENMT: Head is normocephalic and atraumatic. Moist mucous membranes. No posterior oropharynx erythema. EYES: No scleral icterus. No conjunctival injection or pallor. PERRL. NECK: No meningeal signs. RESP: Able to speak in full sentences. Normal respiratory effort. Diffuse rhonchi CARDIO: Tachycardic rate. [Regular] rhythm. 2+ DP and radial pulses bilaterally. GI: Nondistended. No tenderness to palpation. Soft. : No CVA tenderness to palpation. SKIN: No rashes or lesions noted on exposed skin. NEURO: Oriented x3. Moves all extremities. EXTREM/MSK/BACK: No pedal edema. PSYCH: Normal affect. Course Vital Signs Vital signs: Vital Signs Temperature 98.1 F 07/03/25 00:56 Pulse Rate 111 H 07/03/25 00:56 Respiratory Rate 20 07/03/25 00:56 Blood Pressure 125/81 07/03/25 00:56 Pulse Oximetry 99 07/03/25 00:56 Oxygen Delivery Room Air 07/03/25 00:56 Temperature 97.8 F 07/03/25 03:01 Pulse Rate 89 07/03/25 07:00 Respiratory Rate 21 H 07/03/25 07:00 Blood Pressure 119/67 07/03/25 06:56 Pulse Oximetry 96 07/03/25 07:00 Oxygen Delivery Room Air 07/03/25 03:01 [facility] Narrative Medical decision making narrative: Patient presents with the above complaint. Initial vitals are remarkable for tachycardia. Physical examination as noted above. Plan discussed: laboratory analysis, EKG, imaging, continuous cardiac monitoring, continuous pulse oximetry. Assessment patient appears in no acute distress. Patient and for normal results and plan of care. Patient is still having some mild persistent chest discomfort. Troponin did have a greater than 20% change. Patient agrees with plan for admission at this time. I spoke with the hospitalist on-call who has accepted the patient for admission. Differential Diagnosis Differential Diagnosis: ACS, pneumonia, pneumothorax, pulmonary embolism, pericarditis, myocarditis, sleep apnea. Lab Data [facility] Lab Attestation statement: I personally reviewed the patient's lab results. Lab results narrative: CBC reveals a hemoglobin of 13.0. VBG reveals a pH of 7.415, pCO2 33.4, bicarb 20.9. Comprehensive metabolic panel reveals a sodium 133. Lipase is 40. BNP is 799. Troponin is 0.017. Magnesium is 1.9. Lactic acid 1.0. COVID and influenza and RSV testing are negative. 07/03/25 05:07 07/03/25 05:07 Labs: Lab Results 07/03/25 07/03/25 07/03/25 Range/Units 05:07 06:28 07:16 WBC 8.3 (4.5-10.0) K/mm3 RBC 4.13 L (4.6-6.20) M/mm3 Hgb 13.0 L D (14.0-18.0) g/dL Hct 38.6 L (42.0-52.0) % MCV 93.5 (80-100) fl MCH 31.5 (26-34) pg MCHC 33.7 (32-36) g/dl RDW 15.0 H (11.5-14.5) % Plt Count 213 (150-375) k/mm3 MPV 9.4 (7.4-10.4) fl Immature Gran % (Auto) 0.6 H (0-0.5) % Neut % (Auto) 71.2 (45.5-73.1) % Lymph % (Auto) 17.8 L (18.3-44.2) % [place] % (Auto) 9.7 H (2.6-8.5) % Eos % (Auto) 0.5 (0-4.4) % Baso % (Auto) 0.2 (0.2-1.2) % Lymph # (Auto) 1.48 (0.9-3.2) K/mm3 [place] # (Auto) 0.8 H (0.1-0.6) K/mm3 Eos # (Auto) 0.0 (0-0.3) K/mm3 Baso # (Auto) 0.0 (0.0-0.1) K/mm3 Abs Immat Gran (auto) 0.05 H (0.00-0.031) K/mm3 Absolute Neuts (auto) 5.9 (1.3-6.7) K/mm3 Absolute Nucleated RBC 0.000 (0.0-0.012) K/mm3 Nucleated RBC % 0.0 (0.0-0.2) % PT 15.6 H (11.1-14.7) Seconds INR 1.2 APTT 36.1 (22.3-36.8) Seconds Sodium 133 L (137-145) mmol/L Potassium 3.9 (3.4-5.0) mmol/L Chloride 105 (98-107) mmol/L Carbon Dioxide 22 (22-30) mmol/L Anion Gap 6 (4-12) mmol/L BUN 14 (9-20) mg/dL Creatinine 0.80 (0.7-1.3) mg/dL Estim Creat Clear Calc 83 ml/min Estimated GFR > 60 (59 - ) Glucose 108 (65-110) mg/dL Lactic Acid 1.0 (0.7-2.0) mmol/L Calcium 9.0 (8.4-10.2) mg/dL Magnesium 1.9 (1.6-2.3) mg/dL Total Bilirubin 1.0 (0.2-1.3) mg/dL AST 31 (17-59) U/L ALT 21 (6-50) U/L Alkaline Phosphatase 77 (38-126) U/L Troponin I 0.017 < 0.012 D (0.000-0.034) ng/mL NT-Pro-B Natriuret Pep 799 H (19.9-100) pg/mL Total Protein 7.7 (6.3-8.2) g/dL Albumin 4.1 (3.5-5.1) g/dL Lipase 40 (23-300) U/L Urine Color Yellow (Yellow) Urine Appearance Cloudy H (Clear) Urine pH 5.0 (5.0-9.0) Ur Specific [place] 1.020 (1.001-1.035) Urine Protein Negative (Negative) mg/dL Urine Glucose (UA) Negative (Negative) mg/dL Urine Ketones Trace H (Negative) mg/dL Ur Blood (Man) Negative (Negative) Urine Nitrate Negative (Negative) Urine Bilirubin Negative (Negative) Urine Urobilinogen 1.0 (<2.0) mg/dL Leukocyte Esterase Rfl 3+ H (Negative) FILIBERTO/UL Urine RBC 0-2 (0-2) /hpf Urine WBC >100 H (0-3) /hpf Ur Squamous Epith Cells None seen (Few) /hpf Urine Bacteria None seen /hpf Urine Casts 0-2 Influenza A (RT-PCR) Negative (Negative) Influenza B (RT-PCR) Negative (Negative) RSV (RT-PCR) Negative (Negative) SARS-CoV-2 RNA (RT-PCR) Negative (Negative) ABG Data ABG results: 07/03/25 05:07 VBG pH 7.415 H* VBG pCO2 33.4 L VBG pO2 43.5 VBG HCO3 20.9 L O2 Delivery Device Room air O2 Liters/Min Not Reportable FiO2 21 Imaging Data Radiologist's impression: ITS Impressions Chest CTA 07/03/25 06:59 IMPRESSION: 1. No PE or other acute cardiopulmonary findings. Chest X-Ray 07/03/25 07:04 IMPRESSION: 1. No acute cardiopulmonary findings given portable technique. Hypoinflation with bronchovascular crowding. ECG Data EKG #1: Attestation: I personally reviewed and interpreted this ECG as follows: ECG completion date: 07/03/25 ECG completion time: 04:50 Interpretation: Rate of 106, rhythm is atrial fibrillation, axis is normal, no ST elevations or depressions, when compared to old EKG on file from September 22, 2024 there is no significant changes. Discharge Plan Discharge Clinical Impression: Shortness of breath, Chest pain, Elevated brain natriuretic peptide (BNP) level, Atrial fibrillation with RVR Patient Disposition: Still a Patient Condition: Stable Patient Language: Pashto Prescriptions: No Action carvedilol 6.25 mg tablet 6.25 mg PO Q12H Rx Instructions: must administer with a meal/food Vascepa 1 gram capsule 2 g PO BID fluticasone propionate [Flonase Allergy Relief] 50 mcg/actuation spray,suspension 1 spray intranasal BID Qty: 16 11RF Rx Instructions: administer into each nostril rosuvastatin 40 mg tablet 40 mg PO DAILY lisinopril 5 mg tablet 5 mg PO DAILY aspirin [Adult Low Dose Aspirin] 81 mg tablet,delayed release (DR/EC) 81 mg PO DAILY Eliquis 5 mg tablet 5 mg PO BID Patient Comments: HOLD [address] Topete spironolactone 25 mg tablet 25 mg PO DAILY azithromycin [Zithromax] 250 mg tablet See Rx Instructions PO .COMPLEX Qty: 6 0RF Rx Instructions: For 250 mg dose pack: take 500 mg today (day 1), then 250 mg for 4 days (days 2-5) PO Follow-up/Referrals: Domenico Rankin MD [Primary Care Provider, [facility]] Time of Disposition: 08:19 Quality HEART score for chest pain patients History: slightly suspicious ECG: normal Age: > or = to 65 years Risk factors: > or = to 3 risk factors of atherosclerotic disease Troponin: < or = to 1x normal limit Heart score: 4
[2025-07-03 05:21] LABS: Hematocrit 38.6 % (42.0-52.0); Hemoglobin 13.0 g/dL (14.0-18.0); Immature Granulocyte Percent A 0.6 % (0-0.5); Lymphocytes Absolute Auto 1.48 K/mm3 (0.9-3.2); Mean Corpuscular HGB Conc 33.7 g/dl (32-36); Mean Corpuscular Hemoglobin 31.5 pg (26-34); Mean Corpuscular Volume 93.5 fl (80-100); Nucleated Red Blood Cells Absolute Auto 0.000 K/mm3 (0.0-0.012); Nucleated Red Blood Cells Perc 0.0 % (0.0-0.2); Platelet Count Result 213 k/mm3 (150-375); Red Blood Count 4.13 M/mm3 (4.6-6.20); White Blood Count 8.3 K/mm3 (4.5-10.0)
[2025-07-03 05:32] LABS: Fractional Inspired Oxygen 21 %; HCO3 VBG 20.9 mEq/l (24.0-30.0); PCO2 VBG 33.4 mmHg (42.0-48.0); PO2 VBG 43.5 mmHg (35.0-45.0)
[2025-07-03 05:44] LABS: INR 1.2; Prothrombin Time 15.6 Seconds (11.1-14.7)
[2025-07-03 05:45] LABS: Partial Thromboplastin Time 36.1 Seconds (22.3-36.8)
[2025-07-03 05:50] LABS: Alanine Aminotransferase 21 U/L (6-50); Albumin Level 4.1 g/dL (3.5-5.1); Alkaline Phosphatase 77 U/L (38-126); Anion Gap 6 mmol/L (4-12); Aspartate Amino Transferase 31 U/L (17-59); Bilirubin,Total 1.0 mg/dL (0.2-1.3); Blood Urea Nitrogen 14 mg/dL (9-20); Calcium 9.0 mg/dL (8.4-10.2); Carbon Dioxide 22 mmol/L (22-30); Chloride 105 mmol/L (98-107); Estimated CRCL calculation 83 ml/min; Estimated Glomerular Filt Rate > 60; Glucose 108 mg/dL (65-110); Lipase 40 U/L (23-300); Magnesium 1.9 mg/dL (1.6-2.3); Potassium 3.9 mmol/L (3.4-5.0); Sodium 133 mmol/L (137-145); Total Protein 7.7 g/dL (6.3-8.2)
[2025-07-03 05:57] LABS: Influenza A QL RT-PCR Negative (Negative); Influenza B QL RT-PCR Negative (Negative); NT Pro B Type Natriuretic Pept 799 pg/mL (19.9-100); RSV RNA, RT-PCR Negative (Negative); SARS-CoV-2 RNA PCR Negative (Negative); Troponin I 0.017 ng/mL (0.000-0.034)
[2025-07-03 05:59] LABS: pH VBG 7.415 (7.300-7.400)
[2025-07-03 06:39] LABS: Add Urine Microscopic? YES; Appearance Urine Cloudy (Clear); Glucose Urine UA Negative (Negative); Leukocyte Esterase Ur 3+ LEU/UL (Negative); Nitrate Urine Negative (Negative); Non Pathogenic Casts 0-2; Specific Grav Ur 1.020 (1.001-1.035)
[2025-07-03 07:48] LABS: Troponin I < 0.012 ng/mL (0.000-0.034)
[2025-07-03] MEDS: ASPIRIN 81 MG CHEWABLE TABLET 324 MG PO (08:48)
--- NOTE | 2025-07-03 09:10 | PC.NURSE ---
breakfast tray given to patient
--- NOTE | 2025-07-03 10:08 | WPCEDHO ---
ED Hand Off Checklist All vitals saved:y IV Site documented:y All med administrations documented:y Triage Note Triage Note patient states that he has been 07/03/25 03:01 sick for the last week with congestion and difficulty sleeping. pt finished z pack today but can not sleep and has compliants of shortness of breath . patient states that he has hx of REGINA, Allergies No Known Allergies Allergy (Unknown, Verified 07/03/25 03:12) Family History (Last Reviewed 12/17/24 @ 08:22 by Noemi Putnam, [facility]) Mother Patient's mother is Acute myocardial infarction Sibling Patient's brother is Administered/Completed Medications Discontinued Medications Aspirin (Aspirin 81 Mg Chewable Tablet) 324 mg PO ONCE STA Stop: 07/03/25 08:20 Last Admin: 07/03/25 08:48 Dose: 324 mg Documented By: COREY Briones 07/03/25 09:10 Nurse Note by Lorenza Cardenas breakfast tray given to patient Initialized on 07/03/25 09:10 - END OF NOTE Interventions/Assessments IV / Saline Lock, Insert Start: 07/03/25 00:56 Freq: Status: Active Protocol: Document 07/03/25 04:50 STEVEJ (Rec: 07/03/25 06:09 ANN [id number]) IV Assessment Peripheral Access Right Arm, Upper Catheter Gauge 18 IV Insertion 1 Attempts Ultrasound Used for No Placement IV Site Assessment WNL IV Care and WNL Maintenance PA: Cardiovascular Assessment Start: 07/03/25 00:56 Freq: Status: Active Protocol: Document 07/03/25 03:01 ANN (Rec: 07/03/25 03:07 [email or web address] [id number]) Cardiovascular Assessment Cardiovascular None Symptoms PA: Respiratory Assessment Start: 07/03/25 00:56 Freq: Status: Active Protocol: Document 07/03/25 03:01 ANN (Rec: 07/03/25 03:07 Brian [id number]) Respiratory Assessment Symptoms None Effort Normal Pattern Regular Depth Normal Cough Description None Oxygen Delivery Oxygen Delivery Room Air Last Vital Signs Temperature 97.8 F 07/03/25 03:01 Pulse Rate 93 07/03/25 10:01 Respiratory Rate 23 H 07/03/25 10:01 Pulse Oximetry 96 07/03/25 10:01 Blood Pressure 126/87 07/03/25 10:01 Blood Pressure Mean 97 07/03/25 10:01 Blood Pressure Position Supine 07/03/25 08:48 Oxygen Delivery Room Air 07/03/25 03:01 Weight 100.9 kg 07/03/25 00:56 Last Result - Abnormals Only RBC 4.13 M/mm3 (4.6-6.20) L 07/03/25 05:07 Hgb 13.0 g/dL (14.0-18.0) L D 07/03/25 05:07 Hct 38.6 % (42.0-52.0) L 07/03/25 05:07 RDW 15.0 % (11.5-14.5) H 07/03/25 05:07 Immature Gran % (Auto) 0.6 % (0-0.5) H 07/03/25 05:07 Lymph % (Auto) 17.8 % (18.3-44.2) L 07/03/25 05:07 [place] % (Auto) 9.7 % (2.6-8.5) H 07/03/25 05:07 [place] # (Auto) 0.8 K/mm3 (0.1-0.6) H 07/03/25 05:07 Abs Immat Gran (auto) 0.05 K/mm3 (0.00-0.031) H 07/03/25 05:07 PT 15.6 Seconds (11.1-14.7) H 07/03/25 05:07 VBG pH 7.415 (7.300-7.400) H* 07/03/25 05:07 VBG pCO2 33.4 mmHg (42.0-48.0) L 07/03/25 05:07 VBG HCO3 20.9 mEq/l (24.0-30.0) L 07/03/25 05:07 Sodium 133 mmol/L (137-145) L 07/03/25 05:07 NT-Pro-B Natriuret Pep 799 pg/mL (19.9-100) H 07/03/25 05:07 Urine Appearance Cloudy (Clear) H 07/03/25 06:28 Urine Ketones Trace mg/dL (Negative) H 07/03/25 06:28 Leukocyte Esterase Rfl 3+ FILIBERTO/UL (Negative) H 07/03/25 06:28 Urine WBC >100 /hpf (0-3) H 07/03/25 06:28 Most Recent Suicide Severity Rating Suicide Severity Rating NO RISK INDICATED 07/03/25 03:01
[2025-07-03 11:07] LABS: Troponin I < 0.012 ng/mL (0.000-0.034)
--- NOTE | 2025-07-03 11:32 | PC.NURSE ---
Patient arrived to the floor via stretcher from the ER. Ambulatory with a steady gait. Denies chest pain or shortness of breath at this time. Reviewed plan related to obtaining vital signs every 4 hours on this floor and when to call for assistance should he feel short of breath or develop chest pain as an example. Verbalizes understanding. station attendant placed on and functioning. Vital signs obtained at this time. No acute distress noted. Significant other at bedside.
[2025-07-04] VITALS (11 sets, daily range): BP systolic 101–128; BP diastolic 59–80; PULSE 87–107; RESP 20–23; TEMP 36.9–37; O2SAT 95–98
--- NOTE | 2025-07-04 | ECHO_ITS ---
Patient Info Name: Hamzah Smiley Age: 74 years : 1950 Gender: Male Ht: 70 in Wt: 219 lbs BSA: 2.24 m2 HR: 102 bpm BP: 128 / 79 mmHg Technical Quality: Fair Exam Date: 07/04/2025 1:56 PM Patient Status: O Admit Date: 07/03/2025 Exam Type: CA echo dop color flow w con Complete two-dimensional, color flow and Doppler transthoracic echocardiogram is performed with contrast to opacify the left ventricle and to improve the deliniation of the left ventricle endocardial borders. Staff Referring Physician: Leandro Gomez Nurse Infection Control: Ryland Hess III Attending Provider: Kiko Sanders Oca Contrast/Agitated Saline Contrast/Ag. Saline: Definity Amount: 2.00 ml Administered By: Ryland Hess III Existing IV Access: Yes IV Access Condition: patent with no signs of infiltration Summary 1. Definity contrast administered improved wall motion interpretation. 2. Left ventricular chamber dimension is normal. 3. Left ventricular systolic function is normal, estimated at 60-65. 4. There is moderate concentric increased left ventricular wall thickness. 5. The left ventricular diastolic function is normal. 6. E/e' 9 is minimally elevated. 7. Left atrial chamber dimension is severely enlarged. 8. Right atrial chamber dimension is severely enlarged. 9. There is mild aortic valve sclerosis. 10. There is trace tricuspid valve regurgitation. 11. No pulmonary hypertension, estimated pulmonary arterial systolic pressure is 33 mmHg. 12. There is trace pulmonic regurgitation. Left Ventricle E/e' 9 is minimally elevated. Left ventricular chamber dimension is normal. Left ventricular systolic function is normal, estimated at 60-65. There is moderate concentric increased left ventricular wall thickness. The left ventricular diastolic function is normal. Definity contrast administered improved wall motion interpretation. Right Ventricle Right ventricular chamber dimension is mildly enlarged. Right ventricular systolic function is normal and with normal TAPSE 1.8 cm. Left Atria Left atrial chamber dimension is severely enlarged. Right Atria Right atrial chamber dimension is severely enlarged. Aortic Valve The aortic valve is trileaflet. There is mild aortic valve sclerosis. There is no aortic valve stenosis. There is no aortic valve regurgitation. Pulmonic Valve There is trace pulmonic regurgitation. Mitral Valve There is no mitral valve stenosis. There is no mitral valve regurgitation. Tricuspid Valve There is trace tricuspid valve regurgitation. No pulmonary hypertension, estimated pulmonary arterial systolic pressure is 33 mmHg. Pericardium/Pleural There is no pericardial effusion. Inferior Vena Cava Normal inferior vena cava with >50% collapse upon inspiration consistent with normal right atrial pressure, 5 mmHg. Aorta The aortic root size at the sinus of Valsalva is normal. Left Ventricular Outflow Tract Name Value Normal LVOT 2D LVOT Diameter 2.5 cm LVOT Doppler LVOT Peak Velocity 106 cm/s LVOT Peak Gradient 4 mmHg LVOT Mean Gradient 2 mmHg LVOT VTI 20 cm LVOT VTI/AV VTI Ratio 1.0 LVOT Stroke Volume 94 ml LVOT CO 8.0 l/min LVOT CI 3.6 l/min/m2 Pulmonic Valve Name Value Normal PV Doppler PV Peak Velocity 98 cm/s PV Peak Gradient 4 mmHg PV Mean Gradient 2 mmHg PV Regurgitation Doppler MO Peak End Diastolic Velocity 116 cm/s Mitral Valve Name Value Normal MV Doppler MV Peak Gradient 4 mmHg MV Mean Gradient 2 mmHg MV Area (Cont Eq VTI) 7.2 cm2 MV Diastolic Function MV E Peak Velocity 104 cm/s MV Decel Time (PW) 193 ms MV Annular TDI MV E/e' (Septal) 10.7 MV E/e' (Lateral) 8.1 MV E/e' (Average) 9.4 Tricuspid Valve Name Value Normal TV Regurgitation Doppler TR Peak Velocity 263 cm/s TR Peak Gradient 27 mmHg Estimated PAP/RSVP RA Pressure 5 mmHg <=5 PA Systolic Pressure 33 mmHg <36 RV Systolic Pressure 33 mmHg <36 TV Annular TDI TV Lateral Ale s' Velocity 16.3 cm/s >=9.5 Aortic Valve Name Value Normal AV Doppler AV Peak Velocity 126 cm/s AV Peak Gradient 6 mmHg AV Mean Gradient 3 mmHg AV VTI 19 cm AV Area (Cont Eq VTI) 4.9 cm2 >=3.0 AV Area (Cont Eq [place]) 4.1 cm2 AV DI ([place]) 0.84 AV Regurgitation 2D LVOT Area 4.8 cm2 Ventricles Name Value Normal LV Dimensions 2D/MM IVS Diastolic Thickness (2D) 1.1 cm 0.6-1.0 LVID Diastole (2D) 5.1 cm 4.2-5.8 LVIW Diastolic Thickness (2D) 0.9 cm 0.6-1.0 LVID Systole (2D) 3.5 cm 2.5-4.0 LVOT Diameter 2.5 cm LV Mass (2D Cubed) 190.21 g 88.00-224.00 LV Mass Index (2D Cubed) 85 g/m2 49-115 Relative Wall Thickness (2D) 0.35 <=0.42 LV Fractional Shortening/Ejection Fraction 2D/MM LV Fractional Shortening (2D) 31 % 25-43 LV EF (2D [place]z) 58 % LV Diastolic Volume (4C MOD) 112 ml LV EF (4C MOD) 62 % LV Diastolic Volume (2C MOD) 89 ml LV EF (2C MOD) 68 % LV Diastolic Volume (BP MOD) 78 ml 62-150 LV Diastolic Volume Index (BP MOD) 35 ml/m2 34-74 LV Systolic Volume (BP MOD) 31 ml 21-61 LV Systolic Volume Index (BP MOD) 14 ml/m2 11-31 LV EF (BP MOD) 60 % 52-72 LV Diastolic Length (4C) 7.4 cm LV Systolic Length (4C) 5.9 cm LV Stroke Volume (4C MOD) 69 ml Atria Name Value Normal LA Dimensions LA Volume (4C A-L) 113 ml LA Volume (BP A-L) 101 ml RA Dimensions RA Systolic Major [place] Length (4C) 6.8 cm 2.1-2.7 RA Area (4C) 31.2 cm2 <=18.0 Report Signatures
--- NOTE | 2025-07-04 13:36 | PM.IMHP2 ---
H&P: HPI History of Present Illness Date/Time: 07/04/25 13:36 Chief Complaint: Shortness of Breath/Dyspnea Narrative: ER-HPI Narrative: Patient is a 74-year-old male presents to the emergency department complaining of difficulty breathing. Patient notes that he started to feel difficulty breathing yesterday and has persisted, feels some chest congestion with it, a slight discomfort in his left ribs. Notes that he recently had a URI with nasal congestion and was prescribed a Z-Kwabena which he finished yesterday. Denies any known fevers. Admits to history of heart disease with stents in his heart x2 about 12 years ago, denies history of heart failure. Admits to history of atrial fibrillation for which he is on Xarelto in taking it as prescribed. Denies melena or hematochezia. Denies any focal weakness or numbness. Admits to chills. Denies any abdominal pain, nausea, vomiting, recent injuries. Patient is 74 y/o male with remote history of CAD and stents, presented with shortness of breathe and dyspnea, to further 3 sets of cardiac enzymes were ordered, and chest x-ray. Home Medications Review of Systems Review of Systems: A 10 system review of systems was completed on the patient and is negative except for what is stated in the HPI. Nursing and ancillary documentation was reviewed. [facility], LATER [facility] Past Medical History Medical History (Updated 07/03/25 @ 08:20 by Leandro Gomez DO) Elevated fasting glucose Glucose 114 with hemoglobin A1c 6.2 on 08/08/2021. glucose 113 with hemoglobin A1c 6.1 on 01/19/2022. Glucose 117 with hemoglobin A1c 6.3 on 07/11/2022. Fasting glucose 112 with hemoglobin A1c 6.1 on 02/07/2023. fasting glucose 104 with hemoglobin A1c 6.2 on 08/20/2023. Fasting glucose 102 with hemoglobin A1c 6.7 on 02/26/2024. Seasonal allergic rhinitis Fatigue Controlled diabetes mellitus without complication, without long-term current use of insulin Glucose 114 with hemoglobin A1c 6.2 on 08/08/2021. glucose 113 with hemoglobin A1c 6.1 on 01/19/2022. Glucose 117 with hemoglobin A1c 6.3 on 07/11/2022. Fasting glucose 112 with hemoglobin A1c 6.1 on 02/07/2023. fasting glucose 104 with hemoglobin A1c 6.2 on 08/20/2023. Fasting glucose 102 with hemoglobin A1c 6.7 on 02/26/2024. Fasting glucose 104, hemoglobin A1c 6.3 With urine microalbumin ratio of 8 and GFR 85 on 05/19/2025. BMI 32.0-32.9,adult Acute non-recurrent maxillary sinusitis UTI (urinary tract infection) Essential hypertension BMI 33.0-33.9,adult Personal history of colonic polyps Normal colonoscopy 2012.Sessile polyp , tubular adenoma, ascending colon 05/20/2023 with recheck in 5 years. At low risk for fall Encounter for prostate cancer screening PSA 1.37 on 02/07/2023. PSA 1.82 on 02/26/2024. PSA 2.26 on 05/19/2025. Hyperkalemia (07/11/22) potassium slightly elevated at 5.4 on 07/11/2022. Potassium normal at 4.3 on 07/26/2022. repeat labs 07/26/2022 with potassium normal at 4.3. COVID-19 02/23/22 positive home test. Tested positive 07/09/2023. Obesity (BMI 30.0-34.9) BPH without obstruction/lower urinary tract symptoms Male erectile dysfunction, unspecified Encounter for screening for malignant neoplasm of lung in former smoker who quit in past 15 years with 30 pack year history or greater CT lung negative on 11/08/2020. CT 11/13/2022 Was negative with recheck in [address] lungs 11/17/[address] of the chest on 11/23/2024 was negative. Colon cancer screening colonoscopy -2012 with recheck in 10 years . Tubular adenoma on 05/20/2023 with recheck in 5 years. Contracture of joint of finger of right hand Acute bronchitis (~09/2023) Chest x-ray with no active lung disease 10/30/2023. Chest x-ray on 09/28/2024 with possible early pneumonia on the left with prominent markings bilaterally in the lower lobes. Atherosclerosis of coronary artery of [place] heart without angina pectoris 2 stents placed around 2012 LAD, RCA. Nuclear stress test with no ischemia and ejection fraction 66% on 04/29/2023. Bilateral cataracts treated surgically Surgical History Surgical History Hx of umbilical hernia repair 11/02/24 Laparoscopic 2 cm umbilical hernia repair with mesh, sita Benites assisted Dr. Topete Hx of appendectomy Family History Family History Mother Patient's mother is , Onset Age: 85 Acute myocardial infarction Sibling Patient's brother is , Onset Age: 61 Social History Social History Social History: Quit 2010, 40 pack years Smoking packs per day: 1.5 Smoking cigarettes per day: 30.0 Years smoked: 40 Smoking pack-years: 60.00 Smoking status: Never smoker Tobacco type: cigarettes Second hand tobacco smoke exposure: Yes Smoking end date: 07/28/10 Alcohol intake: current Drinks per week: 5 Alcohol use details: BEERS Substance use: never Substance use type: does not use Lack of Transportation: No Lack of Food: Never True Current Housing: I Have Housing Concerned About Future Housing: No Difficulty Paying Gas/Electric Bills: No Difficulty Paying for Meds: No Currently Unemployed: No Education: Trade/Vocational Certificate Difficulty w/ Childcare or Family Care: No Living arrangements: with family Additional living arrangements comments: Spiritual care concerns: No Meds Home Medications and Allergies Home Medications ?Medication ?Instructions ?Recorded ?Confirmed ?Type apixaban 5 mg tablet (Eliquis) 5 mg PO BID 06/15/19 07/03/25 History aspirin 81 mg tablet,delayed 81 mg PO DAILY 06/15/19 07/03/25 History release (Adult Low Dose Aspirin) lisinopril 5 mg tablet 5 mg PO DAILY 06/15/19 07/03/25 History spironolactone 25 mg tablet 25 mg PO DAILY 06/15/19 07/03/25 History carvedilol 6.25 mg tablet 6.25 mg PO Q12H 02/14/21 07/03/25 History icosapent ethyl 1 gram capsule 2 g PO BID 02/14/21 07/03/25 History (Vascepa) rosuvastatin 40 mg tablet 40 mg PO DAILY 05/16/23 07/03/25 History Allergies Allergy/AdvReac Type Severity Reaction Status Date / Time No Known Allergies Allergy Unknown Verified 07/03/25 11:15 Vital Signs Vital Signs - 24 hr 07/03/25 14:00 07/03/25 15:50 07/03/25 16:00 Temperature 37.0 C Pulse Rate 93 89 113 H Respiratory Rate 23 H Blood Pressure 110/72 Pulse Oximetry 98 97 Oxygen Delivery Room Air 07/03/25 16:00 07/03/25 18:00 07/03/25 20:00 Temperature 36.8 C Pulse Rate 97 95 102 H Respiratory Rate 23 H Blood Pressure 119/82 Pulse Oximetry 95 Oxygen Delivery 07/03/25 22:00 07/04/25 00:00 07/04/25 02:00 Temperature 36.9 C Pulse Rate 92 87 92 Respiratory Rate 23 H Blood Pressure 116/80 Pulse Oximetry 95 Oxygen Delivery 07/04/25 04:00 07/04/25 04:00 07/04/25 06:00 Temperature 37.0 C Pulse Rate 94 87 91 Respiratory Rate 22 H Blood Pressure 101/59 L Pulse Oximetry 97 Oxygen Delivery 07/04/25 07:47 07/04/25 08:00 07/04/25 08:00 Temperature 37.0 C Pulse Rate 107 H 102 H 102 H Respiratory Rate 20 20 Blood Pressure 128/79 Pulse Oximetry 96 96 Oxygen Delivery Room Air 07/04/25 10:00 07/04/25 11:57 07/04/25 12:00 Temperature 36.9 C Pulse Rate 93 96 96 Respiratory Rate 20 20 Blood Pressure 125/68 Pulse Oximetry 98 98 Oxygen Delivery Room Air 07/04/25 12:00 Temperature Pulse Rate 104 H Respiratory Rate Blood Pressure Pulse Oximetry Oxygen Delivery Exam Narrative: Patient is comfortable, NAD HEENT: eyes are clear and none icteric LUNGS:CTA HEART: RR S1S2 ABD: BS+, Soft and nontender Lower extremities: no edema SKIN: nonjaundiced Neuro: grossly intact. Assessment and Plan Assessment and plan (1) Chest pain: Code(s): R07.9 - Chest pain, unspecified Status: Acute (2) A-fib: Code(s): I48.91 - Unspecified atrial fibrillation Status: Acute Plan Patient is 74 y/o male with remote history of CAD and stents, presented with shortness of breathe and dyspnea, to further 3 sets of cardiac enzymes were ordered, and chest x-ray.
[2025-07-04] MEDS: PERFLUTREN LIPID MICROSPHERES 1.5 ML VIAL DILUTED TO 10 ML TOTAL VOLUME IV PUSH (15:15)
--- NOTE | 2025-07-04 15:15 | IVDEFINITY ---
Prior to administration of IV Definity the patient was educated on the risks and benefits of the imaging enhancing agent including potential adverse side effects. The patient verbalized understanding. Allergies were verified. No exclusion criteria were identified and at least one of the following inclusion criteria were met: 1) physician request, 2) patient technically difficult to image (per the [place] [employer] guidelines of two or more segments not discernable within the apical view), or 3) questionable left ventricular function. ?
[2025-07-04] MEDS: OMEGA 3 POLYUNSAT FATTY ACIDS 1 GM CAP 2 GM PO (16:02)
[2025-07-04] MEDS: ROSUVASTATIN 20 MG TABLET 40 MG PO (16:03)
[2025-07-04] MEDS: SPIRONOLACTONE 25 MG TABLET PO (16:03)
[2025-07-04] MEDS: APIXABAN 5 MG TABLET PO (16:03)
[2025-07-04] MEDS: ASPIRIN 81 MG ENTERIC TABLET PO (16:05)
--- NOTE | 2025-07-04 16:34 | PC.NURSE ---
Patient discharged home in personal vehicle. Reviewed all discharge instructions including medications and next dose due times. Verbalizes understanding at this time. IV removed intact and laborer pipelines removed. No acute distress noted.
== END 2025-07-04 16:24 | disposition home or self-care (01) ==
LOC: ANHED 08:20 → ANHIMU 07-04 15:03 → ANH3MEDSUR 07-05 07:15 → ANHIMU 07-05 07:15
PROVIDERS: Admitting Provider Student in an Organized Health Care Education/Training Program; Emergency Provider Student in an Organized Health Care Education/Training Program; PCP Family Medicine; Visit Provider Family Medicine
DX: R07.9 Chest pain, unspecified (principal); I48.91 Unspecified atrial fibrillation; R82.90 Unspecified abnormal findings in urine; Z20.822 Contact with and (suspected) exposure to COVID-19; Z79.01 Long term (current) use of anticoagulants; Z79.82 Long term (current) use of aspirin; I25.10 Atherosclerotic heart disease of native coronary artery without angina pectoris; E11.9 Type 2 diabetes mellitus without complications; I10 Essential (primary) hypertension; Z87.891 Personal history of nicotine dependence
CPT/HCPCS: 36415; 71045; 71275; 80053; 81001; 82803; 83605; 83690; 83735; 83880; 84484; 85025; 85610; 85730; 87086; 87637; 93005; 96374; 99285; A9270; C8929; G0378; Q9957; Q9967